=== PATIENT | female | born 1935 | race Caucasian/White ===

== ENCOUNTER 2017-01-07 10:02 | Emergency (ER) | payer MEDICARE, BC ==
[2017-01-07 10:55] LABS: BASOPHILS 0.2 % (0.0-2.0); EOSINOPHILS 1.5 % (0-7); HEMATOCRIT 45.9 % (36.0-48.0); HEMOGLOBIN 14.6 g/dL (12-16); IMMATURE GRANULOCYTES 0.2 % (0-5); LYMPHOCYTES 13.1 % (15-50); MCH 30.9 pg (26.0-34.0); MCHC 31.8 g/dL (31.0-37.0); MCV 97.2 fL (80.0-100.0); MEAN PLATELET VOLUME 9.9 fL (7.4-10.4); MONOCYTES 10.1 % (2-11); NEUTROPHILS 74.9 % (40-80); PLATELET COUNT 202 10x3/uL (130-400); RBC 4.72 10x6/uL (4.00-5.40); RDW 12.8 % (11.5-14.5); WBC 6.7 10x3/uL (4.8-10.8)
[2017-01-07 11:04] LABS: INR 1.38 (0.85-1.17); PROTIME 16.9 SECONDS (11.6-15.0)
[2017-01-07 11:12] LABS: ALBUMIN 3.5 g/dL (3.4-5.0); ANION GAP 7.2 mmol/L (8-16); BILIRUBIN - TOTAL 0.52 mg/dL (0.2-1.3); CALCIUM 9.8 mg/dL (8.5-10.1); CARBON DIOXIDE 36.6 mmol/L (21.0-32.0); CREATININE - SERUM 0.8 mg/dL (0.6-1.3); POTASSIUM - SERUM 4.8 mmol/L (3.5-5.1); PROTEIN - SERUM 6.8 g/dL (6.4-8.2)
== END 2017-01-07 11:37 | disposition home or self-care (01) ==
LOC: D.ER 10:02
PROVIDERS: Emergency Medicine; Nurse Practitioner Family
DX: S00.01XA Abrasion of scalp, initial encounter (principal); W01.0XXA Fall on same level from slipping, tripping and stumbling without subsequent striking against object, initial encounter; Y93.89 Activity, other specified; Y92.019 Unspecified place in single-family (private) house as the place of occurrence of the external cause; S09.90XA Unspecified injury of head, initial encounter; M54.16 Radiculopathy, lumbar region; Z95.0 Presence of cardiac pacemaker

== ENCOUNTER 2017-05-31 12:03 | Inpatient (IN) | payer MEDICARE, BC ==
[~2017-05-31] VITALS: Ht 160 cm; Wt 68.2 kg
[2017-05-31 13:01] LABS: APPEARANCE CLEAR (CLEAR); BILIRUBIN NEGATIVE (NEGATIVE); COLOR YELLOW (YELLOW); GLUCOSE NEGATIVE (NEGATIVE); KETONE NEGATIVE (NEGATIVE); LEUKOCYTE ESTERASE 1+ (NEGATIVE); NITRITE NEGATIVE (NEGATIVE); PROTEIN NEGATIVE (NEGATIVE); UROBILINOGEN NORMAL (NORMAL)
[2017-05-31 13:03] LABS: RED CELLS - URINE RARE /hpf (0-5); WHITE CELLS - URINE RARE /hpf (0-5)
[2017-05-31 13:04] LABS: BACTERIA FEW /hpf (NONE SEEN); EPITHELIAL CELLS 0-5 /hpf (0-5)
[2017-05-31 13:31] LABS: BASOPHILS 0.2 % (0-2); EOSINOPHILS 2.5 % (0-7); HEMATOCRIT 45.9 % (36.0-48.0); HEMOGLOBIN 13.8 g/dL (12-16); IMMATURE GRANULOCYTES 0.2 % (0-5); LYMPHOCYTES 19.3 % (15-50); MCH 29.4 pg (26.0-34.0); MCHC 30.1 g/dL (31.0-37.0); MCV 97.9 fL (80.0-100.0); MEAN PLATELET VOLUME 9.6 fL (7.4-10.4); MONOCYTES 11.5 % (2-11); NEUTROPHILS 66.3 % (40-80); PLATELET COUNT 186 10x3/uL (130-400); RBC 4.69 10x6/uL (4.00-5.40); RDW 13.9 % (11.5-14.5); WBC 5.7 10x3/uL (4.8-10.8)
[2017-05-31 14:00] LABS: INR 1.2 (0.85-1.17); PROTIME 15.1 SECONDS (11.6-15.0)
[2017-05-31 14:04] LABS: ALBUMIN 3.2 g/dL (3.4-5.0); ALKALINE PHOSPHATASE 95 U/L (46-116); ALT (SGPT) 17 U/L (10-68); BILIRUBIN - TOTAL 0.43 mg/dL (0.2-1.3); CALC OSMOLALITY 281 mosm/kg (275-300); CALCIUM 9.8 mg/dL (8.5-10.1); CHLORIDE - SERUM 100 mmol/L (98-107); CREATINE KINASE 51 UL (21-215); CREATININE - SERUM 0.7 mg/dL (0.6-1.3); GLUCOSE 117 mg/dL (74-106); MAGNESIUM - SERUM 2.1 mg/dL (1.8-2.4); POTASSIUM - SERUM 5.2 mmol/L (3.5-5.1); PRO BNP 364 pg/mL (0-450); PROTEIN - SERUM 6.5 g/dL (6.4-8.2); SODIUM 142 mmol/L (136-145); TROPONIN-I 0.018 ng/mL (0.000-0.060); UREA NITROGEN 8 mg/dL (7-18); eGFR NON AFRICAN AMERICAN 85 mL/min (90-120)
--- NOTE | 2017-05-31 19:45 | NUR ---
PT AWAKE AND ALERT WITH BIPAP IN PLACE, TRYING VERY HARD TO TALK THROUGH THE MASK. SAYING SHE IS VERY HUNGRY. PROVIDED PT WITH A MEAL AND PLACED HER ON O2 @ 2L/NC WHILE EATING. AFTER EATING, GOING TO BATHROOM WITH ASSISTANCE, PT SAT WAS 96%. DISCUSSED WITH Scotty AND HE WILL MONITOR AND RETURN HER TO BIPAP IF NEEDS INDICATED. SEE ASSESSMENT, MONITOR AND CPOC.
[2017-05-31 22:45] VITALS: BP 119/60; BMI 24.8
[2017-05-31 23:00] VITALS: BP 119/60
--- NOTE | 2017-05-31 23:00 | NUR ---
PT HAS REMAINED OFF OF BIPAP WITH O2 @ 2L/NC AND TOLERATING WELL. MONITOR AND CPOC.
[2017-05-31] MEDS ORDERED: CAPTOPRIL25 MG PO (23:21)
[2017-05-31] MEDS ORDERED: NORVASC10 MG PO (23:21)
[2017-05-31] MEDS ORDERED: MACRODANTIN50 MG PO (23:22)
[2017-05-31] MEDS ORDERED: LEVOTHYROXINE100 MCG PO (23:22)
[2017-05-31] MEDS ORDERED: PACERONE200 MG PO (23:24)
[2017-05-31] MEDS ORDERED: LIPITOR10 MG PO (23:26)
[2017-05-31] MEDS ORDERED: PRADAXA150 MG (23:27)
[2017-05-31] MEDS ORDERED: PAXIL30 MG PO (23:27)
[2017-06-01 04:58] LABS: BASOPHILS 0 % (0-2); EOSINOPHILS 0 % (0-7); HEMATOCRIT 45.5 % (36.0-48.0); HEMOGLOBIN 14.3 g/dL (12-16); LYMPHOCYTES 10.1 % (15-50); MCH 30.4 pg (26.0-34.0); MCHC 31.4 g/dL (31.0-37.0); MCV 96.8 fL (80.0-100.0); MEAN PLATELET VOLUME 9.8 fL (7.4-10.4); MONOCYTES 0.6 % (2-11); NEUTROPHILS 89.3 % (40-80); PLATELET COUNT 167 10x3/uL (130-400); RDW 13.3 % (11.5-14.5)
[2017-06-01 05:02] LABS: WBC 3.3 10x3/uL (4.8-10.8)
[2017-06-01 05:14] LABS: ANION GAP 7.7 mmol/L (8-16); CALCIUM 9.9 mg/dL (8.5-10.1); CARBON DIOXIDE 35.8 mmol/L (21.0-32.0); CREATININE - SERUM 0.8 mg/dL (0.6-1.3)
[2017-06-01 05:18] LABS: POTASSIUM - SERUM 3.5 mmol/L (3.5-5.1)
[2017-06-01 05:36] VITALS: BP 158/70
--- NOTE | 2017-06-01 06:33 | NUR ---
ROUNDS BY DR HEALY. PT BEING ASSESSED. CPOC.
[2017-06-01 07:20] VITALS: Ht 160 cm; Wt 68.2 kg
--- NOTE | 2017-06-01 08:11 | NUR ---
0715- AM ROUNDING- RECEIVED REPORT FROM ENGROSSER NURSE COLLINS. PT IS CURRENTLY LAYING IN BED ON BACK WITH EYES CLOSED RESTING. ON 02 AT 2L VIA NC. NO MONITOR. IV SEEN TO LEFT AC THAT IS CURRENTLY SALINE LOCKED. NO NEED AT CURRENT TIME. WILL CONTINUE TO MONITOR AND CONTINUE WITH PLAN OF CARE.
--- NOTE | 2017-06-01 08:12 | NUR ---
0801- ESTER WITH RESP CAME TO INFORM ME HE TOOK ABGS ORDERED BY DR. CHENEY. ESTER STATES CO2 IS 66.9. CALLED DR. PASCAL OFFICE TO INFORM HIM OF THIS. SPOKE WITH MIKAYLA DONOVAN. ZION STATES SHE WILL LET HIM KNOW. WILL AWAIT CALLBACK AND CONTINUE TO MONITOR.
[2017-06-01 08:34] VITALS: BP 124/52
[2017-06-01 12:24] VITALS: BP 111/58
[2017-06-01 16:33] VITALS: BP 122/62
--- NOTE | 2017-06-01 17:26 | NUR ---
PT IS CURRENTLY SITTING UP IN BED WITH EYES CLOSED RESTING. NO NEED AT CURRENT TIME. WILL CONTINUE TO MONITOR AND CONTINUE WITH PLAN OF CARE.
--- NOTE | 2017-06-01 17:30 | NUR ---
OT NOTE: PT COMPLETED BED MOB WITH CGA/MIN A. PT COMPLETED SITTING BALANCE WITH SBA. PT COMPLETED GROOMING TASK WITH SET UP. PT COMPLETED FM AXS FOR INCREASED I WITH ADLS. THANK YOU, LEATHA WILLINGHAM/Karen
[2017-06-01 19:00] VITALS: BP 131/59
--- NOTE | 2017-06-01 21:45 | NUR ---
PT LEFT AC SITE IS SWELLING, AND LEAK PINK FLUIDS, RESTART IV AT RT FOREARM, 22 GA, WITH 1 ATTEMPT, FLUSHED 10ML NORMAL SALINE, GOOD BLOOD RETURN,PT TOLERATE WELL.
--- NOTE | 2017-06-01 21:54 | NUR ---
GAVE DIAMOX, SUPPERVISED BY JAMEL Haider RN
[2017-06-02] VITALS: BP 115/57
--- NOTE | 2017-06-02 01:49 | NUR ---
REST QUIETLY IN BED, EYE CLOSE, BED LOW, CALL LIGHT WITHIN REACH.
[2017-06-02 04:00] VITALS: BP 143/63
[2017-06-02 04:35] LABS: BASOPHILS 0 % (0-2); EOSINOPHILS 0 % (0-7); HEMOGLOBIN 12.8 g/dL (12-16); IMMATURE GRANULOCYTES 0.2 % (0-5); MCH 29.4 pg (26.0-34.0); MCHC 31.2 g/dL (31.0-37.0); MEAN PLATELET VOLUME 9.3 fL (7.4-10.4); MONOCYTES 3.2 % (2-11); NEUTROPHILS 91.6 % (40-80); PLATELET COUNT 185 10x3/uL (130-400); RBC 4.35 10x6/uL (4.00-5.40); RDW 13.5 % (11.5-14.5)
[2017-06-02 04:40] LABS: MCV 94.3 fL (80.0-100.0); WBC 8.6 10x3/uL (4.8-10.8)
[2017-06-02 05:04] LABS: ALBUMIN 2.8 g/dL (3.4-5.0); ANION GAP 5.3 mmol/L (8-16); BILIRUBIN - TOTAL 0.29 mg/dL (0.2-1.3); CALCIUM 10.1 mg/dL (8.5-10.1); CARBON DIOXIDE 32.9 mmol/L (21.0-32.0); CREATININE - SERUM 0.9 mg/dL (0.6-1.3); MAGNESIUM - SERUM 2.2 mg/dL (1.8-2.4); PHOSPHOROUS 2.9 mg/dL (2.5-4.9); POTASSIUM - SERUM 3.2 mmol/L (3.5-5.1); PROTEIN - SERUM 6.3 g/dL (6.4-8.2); THYROID STIMULATING HORMONE 0.49 uIU/mL (0.36-3.74)
--- NOTE | 2017-06-02 07:59 | NUR ---
AM ROUNDING- RECEIVED REPORT FROM STRATEGIC SOURCING MANAGER NURSE SANTI. PT IS CURRENTLY SITTING UP IN BED WITH EYES OPEN RESTING REQUESTING A NEWS PAPER. ON 02 AT 2L VIA NC. NO MONITOR. IV SEEN TO RIGHT FOREARM THAT IS CURRENTLY SALINE LOCKED. NO NEED AT CURRENT TIME. WILL CONTINUE TO MONITOR AND CONTINUE WITH PLAN OF CARE.
[2017-06-02 08:00] VITALS: BP 116/42
[2017-06-02 12:00] VITALS: BP 105/48
[2017-06-02 16:00] VITALS: BP 111/44
--- NOTE | 2017-06-02 16:14 | NUR ---
OT NOTE: PT COMPLETED BUE STRENGTHENING EXS FOR INCREASED I WITH ADLS. PT COMPLETED GROOMING AND HYGIENE TASKS WITH CGA. PT COMPLETED BED MOB WITH CGA. THANK YOU, LEATHA WILLINGHAM/Karen
--- NOTE | 2017-06-02 16:19 | NUR ---
OT NOTE: PERFORMED ADLS INCLUDING AMB TO BATHROOM AND PERFORMED TOILEITNG AND CLOTHING MGMT WITH SBA. SLIGHTLY OFF BALANCE WHILE TURNING TO AMB BACK TO BED; BED MOB AND TRANSFERS WERE INDEP; PT HAD TO STOP AND HOLD ON TO THERAPIST WHEN TURNING FROM TOILET TO WALK WITH INTERVENTIONAL CARDIOLOGIST BACK TO BED
--- NOTE | 2017-06-02 16:35 | NUR ---
PT IS CURRENTLY SITTING UP IN BED WITH EYES OPEN RESTING. GUEST IS AT BEDSIDE. PT DENIES ANY NEED AT CURRENT TIME. CALL LIGHT IS IN REACH. WILL CONTINUE TO MONITOR.
--- NOTE | 2017-06-02 17:08 | NUR ---
Patient Name: DALTON SOARES Admission Status: ER Accout number: [id number] Admission Date: 05-31-2017 : 1935 Admission Diagnosis:SHORTNESS OF BREATH Attending: KACIE Current LOS: 2 Anticipated DC Date: Planned Disposition: Home Primary Insurance: MEDICARE A & B Discharge Planning Comments: * Is the patient Alert and Oriented? Yes 0 * How many steps to enter\exit or inside your home? NONE 0 * PCP DR. HEALY 0 * Pharmacy [facility] 0 * Preadmission Environment Home with Family 0 * ADLs Independent 0 * Equipment Cane Nebulizer Oxygen Walker 0 * Other Equipment HOME OXYGEN AT NIGHT ONLY [employer] 0 * List name and contact numbers for known caregivers / representatives who currently or will assist patient after discharge: [place] SOARES, SON, 0 * Community resources currently utilized None 0 * Please name any agencies selected above. NONE 0 * Additional services required to return to the preadmission environment? No 0 * Can the patient safely return to the preadmission environment? Yes 0 * Has this patient been hospitalized within the prior 30 days at any hospital? No 0 CM MET WITH PT IN ROOM TO DISCUSS DISCHARGE PLANNING AND NEEDS. PT REPORTS LIVING AT HOME INDEPENDENTLY, PT REPORTS HER SON AND DAUGHTER IN LAW ARE LIVING WITH HER UNTIL SHE IS ABLE TO SELL THE HOUSE; PT REPORTS BEING ON WAITING LIST FOR INDEPENDENT LIVING APARTMENT AT [facility]. PT HAS CANE, WALKER, NEBULIZER AND NIGHT TIME OXYGEN AT HOME, PROVIDER UNKNOWN. PT HAS NO OUTSIDE SERVICES ASSISTING IN THE HOME. CM DISCUSSED AVAILABILITY OF HOME HEALTH, REHAB SERVICES AND MEDICAL EQUIPMENT. PT REPORTS UNKNOWN DISCHARGE NEEDS, REPORTS HER SON WILL PICK HER UP FOR DISCHARGE HOME. PT PLANS TO DISCHARGE HOME, PT'S SON AND DAUGHTER IN LAW LIVE WITH PT. PT REPORTS [employer] DISCHARGE NEEDS AT TIME OF ASSESSEMENT. CM TO FOLLOW AND ASSIST IF NEEDED. Farmworker Livestock: Salvador Rodriguez
[2017-06-02 21:05] VITALS: BP 105/47
--- NOTE | 2017-06-02 23:00 | NUR ---
ASSISTED PT TO BATHROOM. SMALL BM AND CLEAR YELLOW URINE NOTED. PARTIAL ASSIST WHEN TRYING TO GET OOB. PT USES WALKER WITH NO ISSUES NOTED. SHIFT ASSESSMENT COMPLETE EARILER. PT ALERT AND ORIENTED TO PERSON, PLACE, TIME AND SITUATION. NC @ 2 L/MIN. EXPIRATORY WHEEZES AND CRACKLES HEARD BILAT THROUGH ALL LOBES. S1S2 AUDIBLE. PACEMAKER NOTED. BOWEL SOUNDS ACTIVE IN ALL QUADS. R FOREARM IV WITH NS @ KVO. SLIPPER SOCKS IN PLACE. DURING REPORT IT WAS NOTED THAT HER POTASSIUM IS LOW. FOLLOWED ELECTROLYTE PROTOCOL AT 2100. CALL LIGHT IN REACH. PT SLEEPS WITH BLACK SLEEP MASK OVER HER EYES. LIGHTS OUT. BATHROOM DOOR IS OPEN, WALKER BY BEDSIDE. INSTRUCTED PT TO PUSH CALL LIGHT WHEN SHE NEEDS TO USE THE RESTROOM. PT VEBALIZED UNDERSTANDING. DOOR CRACKED. WILL CONTINUE TO MONITOR.
[2017-06-03 01:19] VITALS: BP 125/65
--- NOTE | 2017-06-03 02:35 | NUR ---
PT RESTING AT THIS TIME ON HER BACK, NC @ 2L/MIN, MOUTH OPEN. NO S/S OF DISTRESS AT THIS TIME. BATHROOM DOOR REMAINS OPEN, WALKER BESIDE THE BED ON THE RIGHT SIDE. IV MAINTENCE FLUID NS @ KVO. ROOM FREE OF CLUTTER. CALL LIGHT AND BEDSIDE TABLE WITHIN REACH. WILL CONTINUE TO MONITOR.
[2017-06-03 05:00] LABS: BASOPHILS 0 % (0-2); EOSINOPHILS 0 % (0-7); HEMATOCRIT 41.5 % (36.0-48.0); HEMOGLOBIN 13.1 g/dL (12-16); IMMATURE GRANULOCYTES 0.4 % (0-5); LYMPHOCYTES 3.2 % (15-50); MCH 29.7 pg (26.0-34.0); MCHC 31.6 g/dL (31.0-37.0); MCV 94.1 fL (80.0-100.0); MEAN PLATELET VOLUME 9.7 fL (7.4-10.4); MONOCYTES 2.5 % (2-11); NEUTROPHILS 93.9 % (40-80); PLATELET COUNT 206 10x3/uL (130-400); RBC 4.41 10x6/uL (4.00-5.40); RDW 13.9 % (11.5-14.5)
[2017-06-03 05:07] LABS: WBC 10.8 10x3/uL (4.8-10.8)
[2017-06-03 05:23] LABS: ALBUMIN 2.8 g/dL (3.4-5.0); ANION GAP 8.8 mmol/L (8-16); BILIRUBIN - TOTAL 0.2 mg/dL (0.2-1.3); CALCIUM 9.8 mg/dL (8.5-10.1); CARBON DIOXIDE 31.8 mmol/L (21.0-32.0); MAGNESIUM - SERUM 2.2 mg/dL (1.8-2.4); POTASSIUM - SERUM 3.6 mmol/L (3.5-5.1); PROTEIN - SERUM 6.2 g/dL (6.4-8.2)
[2017-06-03 06:18] VITALS: BP 144/53
--- NOTE | 2017-06-03 06:30 | NUR ---
COMPLETE BED BATH AND LINEN CHANGE PROVIDED BY INVESTIGATION OFFICER AND RN. PT RESTING COMFORTABLY WITH NO REQUESTS AT THIS TIME. RESPIRATORY AT BEDSIDE ADMIN TX. CALL LIGHT IN REACH. BED IN LOWEST POSITON. WALKER NEAR BEDSIDE. PT WEARING NON-SKID SOCKS. WILL CONTINUE WITH PLAN OF CARE.
--- NOTE | 2017-06-03 07:14 | NUR ---
PT SITTING UP IN BED SLEEPING RR EVEN AND UNLABORED NO S/S DISTRESS NOTED. WILL CONT TO MONITOR
[2017-06-03 08:09] VITALS: BP 130/54
[2017-06-03 12:52] VITALS: BP 101/46
--- NOTE | 2017-06-03 13:39 | NUR ---
Nutrition Follow Up: Pt was on the phone at the time of RD visit. Interview deferred at this time. Pt is eating 63% meal avg on an AHA 2g Na diet. Wt gain since admit noted. +BM 06/03/17. Labs reviewed - glucose elevated. Meds noted including Prednisone. Rec continue current diet. If glucose continues elevated rec changing diet to AHA NCS. RD following.
--- NOTE | 2017-06-03 14:41 | NUR ---
OT NOTE: PERFORMED IN ROOM AMBULATION WITH SENIOR SYSTEM OPERATOR; TOILETING WITH HAND HELD ASSIST AND CGA FOR BALANCE WHILE PULLING UP PANTS; BED MOB WITH SPV; UE AROM EXS TO IMPROVE STRENGTH AND ENDURANCE
--- NOTE | 2017-06-03 14:45 | NUR ---
OT NOTE: PT COMPLETED ORAL HYGIENE AND GROOMING TASKS WITH SET UP. PT COMPLETED ADL MOB WITH CGA. PT COMPLETED BED MOB WITH SUPV. PT COMPLETED BUE AROM EXS FOR INCREASED AX TOLERANCE. THANK YOU, TENISHA WILLINGHAM
[2017-06-03 16:19] VITALS: BP 118/49
--- NOTE | 2017-06-03 18:39 | NUR ---
PT SITTING UP IN BED EATING DINNER DENIES NEEDS
[2017-06-03 19:00] VITALS: BP 120/52
--- NOTE | 2017-06-03 19:30 | NUR ---
RECEIVED REPORT, WILL ASSUME CARE OF PT, BED IS LOW, SRX2, CALL LIGHT IN REACH, PT DENIES ANY NEEDS, WILL CONTINUE PLAN OF CARE
[2017-06-04] VITALS: BP 117/59
--- NOTE | 2017-06-04 01:37 | NUR ---
ASSISTED PT TO RESTROOM
[2017-06-04 04:00] VITALS: BP 119/52
[2017-06-04 05:24] LABS: BASOPHILS 0 % (0-2); EOSINOPHILS 0 % (0-7); HEMATOCRIT 41.2 % (36.0-48.0); HEMOGLOBIN 12.9 g/dL (12-16); IMMATURE GRANULOCYTES 0.3 % (0-5); MCH 29.1 pg (26.0-34.0); MCHC 31.3 g/dL (31.0-37.0); MCV 92.8 fL (80.0-100.0); MEAN PLATELET VOLUME 9.6 fL (7.4-10.4); MONOCYTES 4.6 % (2-11); NEUTROPHILS 90.1 % (40-80); PLATELET COUNT 207 10x3/uL (130-400); RBC 4.44 10x6/uL (4.00-5.40); RDW 14.2 % (11.5-14.5); WBC 9.5 10x3/uL (4.8-10.8)
[2017-06-04 05:46] LABS: CALC OSMOLALITY 282 mosm/kg (275-300); CALCIUM 9.4 mg/dL (8.5-10.1); CARBON DIOXIDE 31.3 mmol/L (21.0-32.0); CHLORIDE - SERUM 104 mmol/L (98-107); GLUCOSE 153 mg/dL (74-106); MAGNESIUM - SERUM 2.3 mg/dL (1.8-2.4); PHOSPHOROUS 2.9 mg/dL (2.5-4.9); POTASSIUM - SERUM 3.4 mmol/L (3.5-5.1); SODIUM 139 mmol/L (136-145); UREA NITROGEN 19 mg/dL (7-18); eGFR NON AFRICAN AMERICAN 85 mL/min (90-120)
[2017-06-04 05:47] LABS: CREATININE - SERUM 0.7 mg/dL (0.6-1.3)
--- NOTE | 2017-06-04 07:16 | NUR ---
PT SITTING UP TO CHAIR DENIES NEEDS WILL CONT TO MONITOR
[2017-06-04 08:12] VITALS: BP 102/39
--- NOTE | 2017-06-04 11:46 | NUR ---
Rehab Note- Acute Rehab Prescreen order received. Visited with the patient, she is very interested in coming to [facility] when ready for discharge from the acute hospital. Spoke with DEVYN Nina. Will follow at this time. Thank you for this referral! Haja Mcmanus RN Clinical Liaison, [facility]
[2017-06-04 12:13] VITALS: BP 123/44
--- NOTE | 2017-06-04 14:37 | NUR ---
Patient Name: DALTON SOARES Encounter No: [id number] : 1935 Primary Insurance: MEDICARE A & B Anticipated DC Date: 06-04-2017 Planned Disposition: Inpatient Rehab External Planned Provider: [facility] DCP follow-up note: CM SPOKE TO MARIA G OF INPATIENT REHAB, THEY PLAN TO ACCEPT PT TODAY FOR REHAB IF STABLE FOR DISCHARGE. CM SPOKE TO DR. GUERIN WHO INFORMED CM THAT PT WILL DISCHARGE TO REHAB TODAY. PT NOTIFIED, IN AGREEMENT WITH DISCHARGE TO INPATIENT REHAB. IMPORTANT MESSAGE FROM MEDICARE PROVIDED AND EXPLAINED. [facility] TO CONTACT MED 2 NURSE WITH ROOM NUMBER WHEN READY TO ACCEPT PT AND NURSE REPORT. Salvador Rodriguez, CASE MANAGEMENT
[2017-06-04 16:07] VITALS: BP 130/47
--- NOTE | 2017-06-04 16:14 | NUR ---
OT NOTE: PT COMPLETED BED MOB WITH SBA. PT COMPLETED DYNAMIC SITTING BALANCE WITH SBA. PT COMPLETED BUE AROM EXS IN ALL PLANES FOR INCREASED AX KAVON. PT COMPLETED GROOMING TASK AT EOB WITH SBA. THANK YOU, LEATHA WILLINGHAM/Karen
[2017-06-04] MEDS ORDERED: ROCEPHIN 1 GM/D51 G1 IV (16:55)
[2017-06-04] MEDS ORDERED: STERAPRED DS 1010 MG PO (16:56)
--- NOTE | 2017-06-04 17:30 | NUR ---
WENT OVER DC INSTRUCTIONS WITH PT PT VERBALIZES UNDERSTANDING. PT TO GO TO REHAB WITH PIV. FINISHING IV ABX AND PT FINISHING DINNER AND WILL TAKE PT TO REHAB. TRIED TO CALL REPORT TO SHADI IN REHAB- SHE SAID THAT THE SCREENING IS NOT COMPLETE AND THEY DONT HAVE BED READY YET. THEY WILL CALL WHEN THEY ARE READY FOR HER
--- NOTE | 2017-06-04 18:03 | NUR ---
PT SITTING UP TO CHAIR. DENIES NEEDS. STILL WAITING ON REHAB BED
--- NOTE | 2017-06-04 18:51 | NUR ---
PT PULLED PIV OUT. CATH TIP INTACT. TRIED TO RESITE PT X2 STICKS. NO SUCCESS.
--- NOTE | 2017-06-04 18:55 | NUR ---
CALLED REHAB AND LET THEM KNOW THAT PT DOES NOT HAVE IV ACCESS ANYMORE. SPOKE WITH VIDHI
--- NOTE | 2017-06-04 19:11 | NUR ---
PT WAS WHEELED DOWN TO REHAB VIA WHEELCHAIR
== END 2017-06-04 19:11 | DRG 189 ==
LOC: D.ER 12:03 → D.M2 16:40
PROVIDERS: Internal Medicine Pulmonary Disease; Nurse Practitioner Family; ADMIT Family Medicine
PROC: 5A09357 Assistance with Respiratory Ventilation, Less than 24 Consecutive Hours, Continuous Positive Airway Pressure (ICD-10-PCS; principal; 2017-05-31)
DX: J96.02 Acute respiratory failure with hypercapnia (principal); J18.9 Pneumonia, unspecified organism; J44.1 Chronic obstructive pulmonary disease with (acute) exacerbation; J44.0 Chronic obstructive pulmonary disease with (acute) lower respiratory infection; E87.2 Acidosis; J96.01 Acute respiratory failure with hypoxia; I48.91 Unspecified atrial fibrillation; R53.1 Weakness; Z91.81 History of falling

== ENCOUNTER 2017-06-04 19:20 | Inpatient (IN) | payer MEDICARE, BC ==
[~2017-06-04] VITALS: Ht 160 cm; Wt 64.4 kg
[~2017-06-04 19:20] MED LIST: CAPTOPRIL25 MG PO; LEVOTHYROXINE100 MCG PO; LIPITOR10 MG PO; MACRODANTIN50 MG PO; NORVASC10 MG PO; PACERONE200 MG PO; PAXIL30 MG PO; PRADAXA150 MG; ROCEPHIN 1 GM/D51 G1 IV; STERAPRED DS 1010 MG PO
--- NOTE | 2017-06-04 19:20 | NUR ---
PT ARRIVED ON UNIT JOSE W/C ACCOMPANIED BY HOSPITAL STAFF.
[2017-06-04 19:30] VITALS: BP 126/54
--- NOTE | 2017-06-04 19:30 | NUR ---
PT IN BED WITH HOB UP FOR COMFORT. ALERT & ORIENTED. RT FA IV. O2 @ 2L VIA N/C. HEARING AIDS. ELECTROLYTE PROTOCOL. BED IN LOWEST POSTION AND CALL LIGHT WITHIN REACH.
--- NOTE | 2017-06-04 20:00 | NUR ---
RN TO DO ADMISSION ASSESSMENT.
[2017-06-04 23:27] VITALS: BMI 24.8
--- NOTE | 2017-06-04 23:45 | NUR ---
ADMISSION ASSESSMENT COMPLETE. PATIENT DENIES CURRENT NEEDS.
--- NOTE | 2017-06-05 03:45 | NUR ---
PT IN BED WITH HOB UP FOR COMFORT. EYES CLOSED. CHEST RISING AND FALLING. BED IN LOWEST POSITION AND CALL LIGHT WITHIN REACH.
--- NOTE | 2017-06-05 04:27 | NUR ---
PT IN BED WITH HOB UP FOR COMFORT. EYES CLOSED. RESPIRATIONS EVEN. BED IN LOWEST POSITION AND CALL LIGHT WITHIN REACH.
[2017-06-05 06:06] LABS: ANION GAP 9.3 mmol/L (8-16); CALCIUM 9.6 mg/dL (8.5-10.1); CARBON DIOXIDE 30.6 mmol/L (21.0-32.0); CREATININE - SERUM 0.8 mg/dL (0.6-1.3); POTASSIUM - SERUM 3.9 mmol/L (3.5-5.1)
[2017-06-05 07:30] LABS: BASOPHILS 0 % (0-2); EOSINOPHILS 0 % (0-7); HEMATOCRIT 44.6 % (36.0-48.0); HEMOGLOBIN 14.2 g/dL (12-16); IMMATURE GRANULOCYTES 0.4 % (0-5); LYMPHOCYTES 8.9 % (15-50); MCH 29.6 pg (26.0-34.0); MCHC 31.8 g/dL (31.0-37.0); MCV 92.9 fL (80.0-100.0); MEAN PLATELET VOLUME 9.8 fL (7.4-10.4); MONOCYTES 9.6 % (2-11); NEUTROPHILS 81.1 % (40-80); PLATELET COUNT 235 10x3/uL (130-400); RDW 14.2 % (11.5-14.5); WBC 11.2 10x3/uL (4.8-10.8)
[2017-06-05 08:00] VITALS: BP 149/61
--- NOTE | 2017-06-05 08:00 | NUR ---
SHIFT ASSMT COMPLETED.O2 PATENT.MEAL SET-UP PROVIDED.CL IN REACH.
--- NOTE | 2017-06-05 08:00 | NUR ---
SHIFT ASSMT COMPLETED.DENIES NEEDS.BLACK EYECOVER REMOVED.SITTING UP IN BED FOR BREAKFAST.MEAL SET-UP PROVIDED.CL IN REACH.
[2017-06-05 10:09] VITALS: BMI 24.8
--- NOTE | 2017-06-05 12:00 | NUR ---
REQUEST TO SLEEP;WILL EAT LATER.CL IN REACH.
--- NOTE | 2017-06-05 13:00 | NUR ---
AWAKENED FOR LUNCH.DENIES NEEDS.
--- NOTE | 2017-06-05 16:00 | NUR ---
RESTING QUIETLY.CL IN REACH.
--- NOTE | 2017-06-05 20:15 | NUR ---
PT. IN BED WITH HOB UP FOR COMFORT WITH O2 ON VIA N/C AT 2L/MIN WITHOUT ANY S/S DISTRESS. EYES CLOSED, RESP. EVEN, AND PT'S MOUTH IS WIDE OPEN. PT. ALSO IS WEARING HER BLACK EYE MASK OVER HER GLASSES SHE IS RESTING. PT. AWAKENS EASILY FOR ASSESSMENT. NO VOICED NEEDS AT THIS TIME AND HER CALL LIGHT IS WITHIN REACH.
[2017-06-05 20:30] VITALS: BP 134/55
--- NOTE | 2017-06-05 23:12 | NUR ---
PT. IN BED WITH HOB UP FOR COMFORT. BLACK EYE MASK IN PLACE. RESP. DEEP AND EVEN. O2 ON VIA N/C @ 2L/MIN WITHOUT ANY S/S DISTRESS. CALL LIGHT IS WITHIN REACH.
--- NOTE | 2017-06-06 03:13 | NUR ---
PT. IN BED WITH HOB UP FOR COMFORT WITH BLACK EYE MASK ON AND HER MOUTH WIDE OPEN BREATHING DEEP AND EVEN. O2 ON VIA N/C @ 2L/MIN WITHOUT ANY S/S DISTRESS. CALL LIGHT WITHIN REACH.
[2017-06-06 08:00] VITALS: BP 126/72
--- NOTE | 2017-06-06 08:00 | NUR ---
SHIFT ASSMT COMPLETED.REMAINS ON O2@2L/NC.UP OOB TO BATHROOM WITH WALKER.RETURNED TO AT BEDSIDE.BREAKFAST TRAY GIVEN.CL IN REACH.
--- NOTE | 2017-06-06 12:00 | NUR ---
UP OOB TO BATHRM AND BACK TO WC.UP OOB FOR LUNCH.CL IN REACH.
--- NOTE | 2017-06-06 16:00 | NUR ---
RESTING QUIETLY.CL IN REACH.
[2017-06-06 19:20] VITALS: BP 139/57
--- NOTE | 2017-06-06 19:45 | NUR ---
PT IN BED WITH HOB UP FOR COMOFRT. RESTING QUIETLY. ALERT & ORIENTED. 02 @ 2L VIA N/C. LT HAND SALINE LOC. PACEMKAER. ELECTROLYTE PROTOCOL. BED IN LOWEST POSITION AND CALL LIGHT WITHIN REACH.
--- NOTE | 2017-06-06 21:30 | NUR ---
SON PRESENT INQUIRING OF MOTHER'S MEDICATION AND CONCERN THAT SHE HAD REFUSED HER AMIODORONE THIS AM. SON WANTED TO CONSULT WITH PT'S BUYER BROKER. MOTHER VERBALIZED CONSENT TO DISCUSS WITH SON AND TO GIVE HIM A LIST OF HER MEDICATIONS. WITNESSED BY JUNIOR LARSON LPN. PROVIDED SON WITH LIST OF MEDICATION. SON STATED THAT HE WAS THE POA AND HIS MOTHER HAS A LIVING WILL AND WANTS TO BE A DNR. CHECKED CHART AND FOUND NO DOCUMENTS, REQUESTED SON BRING IN THE DOCUMENTS. LEFT MESSAGE FOR DR. MARTINEZ TO DISCUSS WITH PATIENT HER WISHES. PT AWOKEN EASILY, DENIES ANY NEEDS.
--- NOTE | 2017-06-07 01:30 | NUR ---
PT IN BED WITH HOB UP FOR COMFORT. EYES CLOSED. RESP. EVEN. BED IN LOWEST POSITION AND CALL LIGHT WITHIN REACH.
--- NOTE | 2017-06-07 04:35 | NUR ---
PT IN BED WITH HOB UP FOR COMFORT. EYES CLOSED. CHEST RISING AND FALLING. BED IN LOWEST POSITION AND CALL LIGHT WITHIN REACH.
[2017-06-07 07:00] LABS: CALC OSMOLALITY 289 mosm/kg (275-300); CALCIUM 9.3 mg/dL (8.5-10.1); CARBON DIOXIDE 32.4 mmol/L (21.0-32.0); CHLORIDE - SERUM 105 mmol/L (98-107); CREATININE - SERUM 0.5 mg/dL (0.6-1.3); POTASSIUM - SERUM 4.7 mmol/L (3.5-5.1); SODIUM 144 mmol/L (136-145); UREA NITROGEN 12 mg/dL (7-18); eGFR NON AFRICAN AMERICAN > 90 mL/min (90-120)
[2017-06-07 07:02] LABS: GLUCOSE 152 mg/dL (74-106)
[2017-06-07 07:03] LABS: BASOPHILS 0.1 % (0-2); EOSINOPHILS 0 % (0-7); HEMATOCRIT 46.7 % (36.0-48.0); HEMOGLOBIN 14.6 g/dL (12-16); IMMATURE GRANULOCYTES 0.4 % (0-5); LYMPHOCYTES 6.5 % (15-50); MCH 29.2 pg (26.0-34.0); MCHC 31.3 g/dL (31.0-37.0); MCV 93.4 fL (80.0-100.0); MONOCYTES 5.4 % (2-11); NEUTROPHILS 87.6 % (40-80); PLATELET COUNT 239 10x3/uL (130-400); RDW 14.3 % (11.5-14.5); WBC 13.4 10x3/uL (4.8-10.8)
[2017-06-07 11:53] VITALS: BP 132/62
--- NOTE | 2017-06-07 12:43 | NUR ---
PATIENT ADMITTED TO REHAB FROM ACUTE FLOOR. DR. HEALY IS PCP, [facility] AT [facility] IS PHARMACY OF CHOICE. DME AT HOME CANE, NEBULIZER, O2 AND WALKER. PLANS ARE FOR PATIENT TO RETURN HOME WITH HER FAMILY. WILL CONTINUE TO FOLLOW WITH PATIENT.
--- NOTE | 2017-06-07 19:45 | NUR ---
PT RESTING QUIETLY LYING IN BED RESPIRATIONS REGULAR AND UNLABORED, OXYGEN PER NASAL CANULA.
[2017-06-07 21:20] VITALS: BP 136/65
--- NOTE | 2017-06-08 01:11 | NUR ---
ASSISTED PT TO BATHROOM, PT USES CALL LIGHT, STATES SHE IS DOING FINE AND DENIES ANY OTHER NEEDS.
--- NOTE | 2017-06-08 05:04 | NUR ---
PT RESTING QUIETLY, NO S/S OF ACUTE DISTRESS.
--- NOTE | 2017-06-08 06:34 | NUR ---
MIN ASSIST WITH AM SHOWERS, LINEN CHANGE
--- NOTE | 2017-06-08 10:17 | NUR ---
RESTING QUIETLY IN BED. OXYGEN IN PLACE. NO S/S DISTRESS. CALL LIGHT IN REACH
--- NOTE | 2017-06-08 11:51 | NUR ---
SITTING UP IN W/C IN ROOM WATCHING TV. CALL LIGHT IN REACH
[2017-06-08 12:39] VITALS: BP 123/53
--- NOTE | 2017-06-08 12:39 | NUR ---
SITTING IN W/C IN ROOM EATING LUNCH. CALL LIGHT IN REACH
--- NOTE | 2017-06-08 18:32 | NUR ---
RESTING QUIETLY IN BED. NO S/S DISTRESS.
--- NOTE | 2017-06-08 21:16 | NUR ---
PT SPOUSE CONTACTED NURSING STATION AND DEMANDS THAT PT RECEIVES REGULAR WATER ABOUT 2 SMALL BOTTLEES TO THAT PATIENT WILL SHUT UP AND GO TO SLEEP. SHE STATES HE KEEPS CALLING HER. I EXPLAINED THE RISKS, SHE STATES PATIENT HAS DEMENTIA AND IS 89 AND SHE WANTS HIM TO HAVE WATER.
[2017-06-08 21:44] VITALS: BP 128/68
--- NOTE | 2017-06-09 00:15 | NUR ---
PT AWAKE, DISCUSSED PLAN FOR MORNING WHICH INCLUDES A SHOWER.
--- NOTE | 2017-06-09 04:19 | NUR ---
PT RESTING QUIELTY, NO S/S OF ACUTE DISTRESS.
[2017-06-09 07:38] LABS: BASOPHILS 0 % (0-2); EOSINOPHILS 0.1 % (0-7); HEMATOCRIT 47.7 % (36.0-48.0); HEMOGLOBIN 14.6 g/dL (12-16); IMMATURE GRANULOCYTES 0.9 % (0-5); LYMPHOCYTES 8.7 % (15-50); MCH 29.1 pg (26.0-34.0); MCHC 30.6 g/dL (31.0-37.0); MCV 95.2 fL (80.0-100.0); MEAN PLATELET VOLUME 9.2 fL (7.4-10.4); MONOCYTES 7.3 % (2-11); PLATELET COUNT 264 10x3/uL (130-400); RBC 5.01 10x6/uL (4.00-5.40); RDW 14.3 % (11.5-14.5); WBC 11.9 10x3/uL (4.8-10.8)
--- NOTE | 2017-06-09 08:00 | NUR ---
SHIFT ASSMT COMPLETED.DENIES NEEDS.CL IN REACH.
[2017-06-09 08:04] LABS: CALCIUM 9.3 mg/dL (8.5-10.1); CHLORIDE - SERUM 103 mmol/L (98-107); CREATININE - SERUM 0.6 mg/dL (0.6-1.3); POTASSIUM - SERUM 4.7 mmol/L (3.5-5.1); SODIUM 143 mmol/L (136-145); UREA NITROGEN 11 mg/dL (7-18); eGFR NON AFRICAN AMERICAN > 90 mL/min (90-120)
[2017-06-09 08:26] LABS: CALC OSMOLALITY 283 mosm/kg (275-300); CARBON DIOXIDE 40.6 mmol/L (21.0-32.0); GLUCOSE 104 mg/dL (74-106)
--- NOTE | 2017-06-09 08:31 | NUR ---
Critical Result Type: co2 Critical Result Value: 40.6 Time Nurse Notified: 0830 Name of Physician and Time Called: 0831 Physician Notified at: 0831 Physician NOT Notified with Reason: NA Comments: ON UNIT AT PRESENT Read Back and Verified By: GABRIEL
[2017-06-09 08:56] VITALS: BP 123/65
--- NOTE | 2017-06-09 12:00 | NUR ---
EATING LUNCH.DENIES NEEDS.
--- NOTE | 2017-06-09 15:26 | NUR ---
CARE TEAM MEETING: SON ATTENDED MEETING AND PLANS ARE FOR PATIENT TO RETURN HOME. TENATIVE DISCHARGE DATE IS 06/15/17. WILL CONTINUE TO FOLLOW WITH SON AND ASSIT WITH DISCHARGE NEEDS.
--- NOTE | 2017-06-09 16:00 | NUR ---
RESTING QUIETLY.DENIES NEEDS.
--- NOTE | 2017-06-09 19:30 | NUR ---
PT. IN BED WITH HOB UP FOR COMFORT AND IS WATCHING TV. ASSESSMENT COMPLETED. ASSISTED PT. TO/FROM BR TO URINATE. PT. ALSO DID HER ORAL CARE BEFORE RETURNING TO BED. NO VOICED NEEDS AT THIS TIME AND HER CALL LIGHT IS WITHIN REACH.
[2017-06-09 20:11] VITALS: BP 132/50
--- NOTE | 2017-06-09 21:50 | NUR ---
LEFT HAND PERIPHERAL IV D/C'D WITH ANGIOCATH TIP INTACT. PRESSURE HELD FOR 5 MIN. PT. IS ON PRADAXA. NO BLEEDING SEEN AND BANDAID APPLIED. PT. TOLERATED PROCEDURE WITHOUT ANY C/O.
--- NOTE | 2017-06-09 23:18 | NUR ---
PT. IN BED WITH HOB UP FOR COMFORT WITH EYES CLOSED AND RESP. DEEP AND EVEN. O2 AT 2L/MIN VIA N/C WITHOUT ANY S/S DISTRESS. CALL LIGHT WITHIN REACH.
--- NOTE | 2017-06-10 08:00 | NUR ---
SHIFT ASSMT COMPLETED.
[2017-06-10 08:47] VITALS: BP 121/49
--- NOTE | 2017-06-10 09:05 | NUR ---
HAD ANOTHER EPISODE OF FEELING BAD AGAIN;COLOR PALE AND CLAMMY;ASSISTED TO MAT IN A SUPINE POS HEAD AND FEET SLIGHTLY ELAVATED.STATED FEELINGS WAS GOING AWAY.BP HAD DROPPED VERY LOW SEE VITAL SIGNS. VISITING AND REPORTED.
--- NOTE | 2017-06-10 10:50 | NUR ---
REPORTED BY OT ATTEMTED TO GET OOB BUT DURING SITTING ON SIDE OF BED REPORTED SHE WAS HAVING THAT FEELING AGAIN.BP WAS CHECKED AND FOUND TO BE LOW.PLACED BACK IN BED AND RECHECKED BP AND FOUND TO BE WNL AND SYMPTOMS WENT AWAY. CONSULTED TO SEE.
--- NOTE | 2017-06-10 12:00 | NUR ---
EATING LUNCH.DENIES NEEDS.
[2017-06-10 15:41] VITALS: Ht 160 cm; Wt 64.4 kg
--- NOTE | 2017-06-10 16:00 | NUR ---
RESTING QUIETLY.DENIES NEEDS.HELD CARDIAC AND BP AND DIURETICS TODAY UNTIL DR.BOWEN REECE'S PT.
[2017-06-10 19:00] VITALS: BP 122/55
--- NOTE | 2017-06-10 19:25 | NUR ---
PT IN BED WITH HOB UP FOR COMFORT. RESTING QUIETLY. ALERT & ORIENTED. 02 @ 2L VIA N/C. NO IV. PACEMKAER. PT'S CODE STATUS IS DNR. BED IN LOWEST POSITION AND CALL LIGHT WITHIN REACH.
--- NOTE | 2017-06-10 19:55 | NUR ---
PATIENT SITTING UP IN BED COMPLETING HER MENU. DENIES NEEDS.
--- NOTE | 2017-06-10 23:55 | NUR ---
PT IN BED WITH HOB UP FOR COMFORT. EYES CLOSED. CHEST RISING AND FALLING. BED IN LOWEST POSITION AND CALL LIGHT WITHIN REACH.
--- NOTE | 2017-06-11 03:55 | NUR ---
PT IN BED WITH HOB UP FOR COMFORT. EYES CLOSED. RESP. EVEN. BED IN LOWEST POSITION AND CALL LIGHT WITHIN REACH.
--- NOTE | 2017-06-11 05:59 | NUR ---
PT UP IN W/C. WATCHING TV. CL IN REACH.
[2017-06-11 07:22] LABS: BASOPHILS 0.1 % (0-2); EOSINOPHILS 0.3 % (0-7); HEMATOCRIT 50.3 % (36.0-48.0); HEMOGLOBIN 15.6 g/dL (12-16); IMMATURE GRANULOCYTES 0.7 % (0-5); LYMPHOCYTES 14.4 % (15-50); MCH 29.5 pg (26.0-34.0); MCV 95.3 fL (80.0-100.0); MEAN PLATELET VOLUME 9.6 fL (7.4-10.4); MONOCYTES 9.2 % (2-11); NEUTROPHILS 75.3 % (40-80); PLATELET COUNT 292 10x3/uL (130-400); RBC 5.28 10x6/uL (4.00-5.40); RDW 14.6 % (11.5-14.5); WBC 13.5 10x3/uL (4.8-10.8)
[2017-06-11 07:43] LABS: CALC OSMOLALITY 285 mosm/kg (275-300); CALCIUM 9.6 mg/dL (8.5-10.1); CHLORIDE - SERUM 102 mmol/L (98-107); CREATININE - SERUM 0.5 mg/dL (0.6-1.3); GLUCOSE 76 mg/dL (74-106); POTASSIUM - SERUM 4.5 mmol/L (3.5-5.1); SODIUM 144 mmol/L (136-145); UREA NITROGEN 12 mg/dL (7-18); eGFR NON AFRICAN AMERICAN > 90 mL/min (90-120)
[2017-06-11 07:44] LABS: CARBON DIOXIDE 40.2 mmol/L (21.0-32.0)
--- NOTE | 2017-06-11 08:00 | NUR ---
SITTING IN W/C EATING BREAKFAST. DENIES NEEDS. DENIES INCREASED SOB WITH TRANSFER TO W/C FROM BED. CALL LIGHT IN REACH
--- NOTE | 2017-06-11 08:20 | NUR ---
DR MARTINEZ NOTIFIED OF CARBON DIAOXIDE LEVEL. NO NEW ORDERS.
[2017-06-11 10:19] VITALS: BP 129/48
--- NOTE | 2017-06-11 17:55 | NUR ---
SITTING UP IN BED EATING SUPPER. DENIES NEEDS. CALL LIGHT IN REACH
--- NOTE | 2017-06-11 22:10 | NUR ---
TAKE A SHOWER FOR PT.
[2017-06-12 00:26] VITALS: BP 133/65
--- NOTE | 2017-06-12 01:10 | NUR ---
ASSISTED PT TO BATHROOM AND BACK TO BED.
--- NOTE | 2017-06-12 03:15 | NUR ---
RESTING QUIETLY IN BED WITH SLEEPING MASK IN PLACE. APPEARS COMFORTABLE.
--- NOTE | 2017-06-12 03:22 | NUR ---
REST QUIETLY IN BED, EYE CLOSE, BED LOW, CALL LIGHT WITHIN REACH.
--- NOTE | 2017-06-12 07:22 | NUR ---
RESTING QUIETLY IN BED. EYES CLOSED. CALL LIGHT IN REACH.
[2017-06-12 09:25] VITALS: BP 112/59
--- NOTE | 2017-06-12 12:04 | NUR ---
SITTING IN W/C EATING LUNCH AND WATCHING TV. DENIES NEEDS. USES WALKER AND W/C FOR MOTION ASST. REMAINS OXYGEN DEPENDENT. CALL LIGHT IN REACH
--- NOTE | 2017-06-12 16:51 | NUR ---
EYES CLOSED. LAYING STILL IN BED. APPEARS TO BE SLEEPING. CALL LIGHT IN HAND
--- NOTE | 2017-06-12 20:31 | NUR ---
UP IN WHEELCHAIR PROPELLING SELF AROUND ROOM EARLIER. ASSISTED TO BED AND ALARM IN PLACE AND FUNCTIONING.PLEASANT AND COOPERATIVE, DENIES ANY PAIN.
[2017-06-12 21:11] VITALS: BP 128/63
--- NOTE | 2017-06-12 23:23 | NUR ---
RESTING IN BED WITH EYES CLOSED. NO S/S OF DISTRESS OBSERVED. O2@ 2 LITERS PER NASAL CANNULA IN PLACE. RESPIRATIONS EVEN AND UNLABORED. CALL LIGHT AND OVERBED TABLE IN REACH.
--- NOTE | 2017-06-13 04:28 | NUR ---
RESTING IN BED WITH EYES CLOSED. NO S/S OF DISTRESS OBSERVED. CALL LIGHT AND OVERBEDTABLE IN REACH.
--- NOTE | 2017-06-13 07:04 | NUR ---
RESTING QUIETLY IN BED. NO S/S DISTRESS OR NEEDS. CALL LIGHT IN REACH.
[2017-06-13 09:44] VITALS: BP 124/64
--- NOTE | 2017-06-13 12:01 | NUR ---
RESTING QUIETLY IN BED. EYES CLOSED, OXYGEN IN PLACE. CALL LIGHT IN REACH
--- NOTE | 2017-06-13 17:09 | NUR ---
ROLLING AROUND UNIT IN W/C. STATES SHE IS TIRED OF HER BED.
--- NOTE | 2017-06-13 20:22 | NUR ---
RESTING IN BED WITH EYES CLOSED AT THIS TIME. NO S/S OF DISTRESS OBSERVED. CALL LIGHTH AND OVERBED TABLE IN REACH. BED ALARM IN PLACE AND FUNCTIONING PROPERLY.
--- NOTE | 2017-06-13 21:57 | NUR ---
RESTING IN BED WITH EYES CLOSED. NO S/S OF DISTRESS OBSERVED. CALL LIGHT AND OVERBED TABLE IN REACH. BED ALARM ON.
[2017-06-13 22:12] VITALS: BP 121/61
[2017-06-13 22:54] VITALS: BP 121/60
--- NOTE | 2017-06-14 00:41 | NUR ---
RESTING IN BED WITH EYES CLOSED. NO S/S OF DISTRESS OBSERVED. CALL LIGHT AND OVERBED TABLE IN REACH. BED ALARM IN PLACE.
--- NOTE | 2017-06-14 01:39 | NUR ---
PT RESTING SUPINE POSITION, EYES CLOSED, RESPIRATIONS REGULAR AND UNLABORED, NO S/S OF ACUTE DISTRESS.
[2017-06-14 06:21] LABS: BASOPHILS 0 % (0-2); EOSINOPHILS 0.9 % (0-7); HEMATOCRIT 42.4 % (36.0-48.0); HEMOGLOBIN 13.1 g/dL (12-16); IMMATURE GRANULOCYTES 0.7 % (0-5); LYMPHOCYTES 11.1 % (15-50); MCH 29.2 pg (26.0-34.0); MCHC 30.9 g/dL (31.0-37.0); MCV 94.6 fL (80.0-100.0); MEAN PLATELET VOLUME 9.6 fL (7.4-10.4); MONOCYTES 11.2 % (2-11); NEUTROPHILS 76.1 % (40-80); PLATELET COUNT 238 10x3/uL (130-400); RBC 4.48 10x6/uL (4.00-5.40); RDW 14.8 % (11.5-14.5); WBC 10.7 10x3/uL (4.8-10.8)
--- NOTE | 2017-06-14 06:37 | NUR ---
ASSISTED PT WITH DETANGLING OXYGEN TUBING FROM PT MOVING AROUND ROOM IN W/C.
[2017-06-14 06:39] LABS: CALC OSMOLALITY 283 mosm/kg (275-300); CALCIUM 8.8 mg/dL (8.5-10.1); CHLORIDE - SERUM 106 mmol/L (98-107); CREATININE - SERUM 0.5 mg/dL (0.6-1.3); GLUCOSE 98 mg/dL (74-106); POTASSIUM - SERUM 4.2 mmol/L (3.5-5.1); SODIUM 143 mmol/L (136-145); UREA NITROGEN 9 mg/dL (7-18); eGFR NON AFRICAN AMERICAN > 90 mL/min (90-120)
--- NOTE | 2017-06-14 07:30 | NUR ---
PT IS SITTING IN HER WC IN HER ROOM FEEDING SELF BREAKFAST WITHOUT DIFFICULTY. NO SWALLOWING PROBLEMS NOTED. PT IS ALERT AND ORIENTED X 3. DENIES ANY PAIN OR DISCOMFORT AT THIS TIME. NO SOB NOTED. SR'S ARE UP X 2 IN BED. CALL LIGHT AND BEDSIDE TABLE ARE WITHIN EASY REACH.
[2017-06-14 07:31] VITALS: BP 132/63
--- NOTE | 2017-06-14 09:43 | NUR ---
PT IS PARTICIPATING IN THERAPY AT THIS TIME.
--- NOTE | 2017-06-14 12:15 | NUR ---
PT IS FEEDING SELF LUNCH IN HER ROOM. NO ACUTE DISTRESS NOTED.
--- NOTE | 2017-06-14 13:34 | NUR ---
PT IS PARTICIPATING IN THERAPY AT THIS TIME.
--- NOTE | 2017-06-14 14:21 | NUR ---
PT SITTING UP IN BED, DENIES NEEDS. WCTM.
--- NOTE | 2017-06-14 17:44 | NUR ---
PT IS FEEDING SELF SUPPER IN HIS ROOM. NO ACUTE DISTRESS NOTED.
[2017-06-14 18:48] VITALS: BP 139/56
--- NOTE | 2017-06-14 19:17 | NUR ---
RESTING IN BED WITH EYES CLOSED. NO S/S OF DISTRESS OBSERVED. CALL LIGHT AND BED SIDE TABLE IN REACH. PATRICK ALARM IN PLACE AND FUNCTIONAL.
--- NOTE | 2017-06-14 20:26 | NUR ---
UP IN BED WITH FAMILY AT BEDSIDE. EXCITED ABOUT GOING HOME TOMORROW. DENIES ANY PAIN. O2@2 LITERS PER N/C IN PLACE. ALARM IN PLACE.
--- NOTE | 2017-06-14 21:43 | NUR ---
RESTING IN BED WITH EYES CLOSED. FEET ELEVATED WITH NO EDEMA PRESENT. DENIES ANY PAIN OR DISCOMFORT.
--- NOTE | 2017-06-15 03:58 | NUR ---
RESTING IN BED WITH EYES CLOSED. NO S/S OF DISTRESS OBSERVED. ASSISTED TO TOILET EARLIER. INDEPENDENT WITH TRANSFERS AND REQUIRES SUPERVISION. DENIED ANY PAIN. ASSISTED BACK TO BED AND ALARM IN PLACE. CALL LIGHT AND OVERBED TABLE IN REACH. O2@2 LITERS PER NASAL CANNULA IN PLACE. NO SOB OBSERVED.
--- NOTE | 2017-06-15 06:12 | NUR ---
RESTING IN BED WITH EYES CLOSED. NO S/S OF DISTRESS OBSERVED. EASILY AROUSES WITH VERBAL STIMULI. SUPERVISED TO TOILET. TAKES MEDICATION WHOLE WITHOUT DIFFICULTY. VOICES EXCITMENT ABOUT GOING HOME TODAY.
--- NOTE | 2017-06-15 07:39 | NUR ---
PT RESTING IN BED WITH EYES OPEN CALL LIGHT IN REACH WILL MONITER
[2017-06-15 07:40] VITALS: BP 120/54
--- NOTE | 2017-06-15 08:00 | NUR ---
PT EATING BREAKFAST, DENIES NEEDS.
--- NOTE | 2017-06-15 09:30 | NUR ---
PT DISCHARGE TO HOME WITH SON DISCHARGE SUMMARY AND MEDS REVIEWED WITH PT NO QUESTIONS TOLERATED WELL
--- NOTE | 2017-06-15 09:39 | NUR ---
PATIENT DISCHARGING HOME WITH FAMILY. [facility] WILL FOLLOW WITH PATIENT AT HOME. NO NEW DME NEEDED AT THIS TIME. DR. HEALY 06/23/17 @ 10:30. PATIENT CHOICE FORM FOR HOME HEALTH AND [facility] FORM SIGNED, EXPLAINED AND FILED IN CHART.ORDERS HAVE BEEN FAXED WITH CONFORMATION RECIEVED
== END 2017-06-15 11:40 | disposition home health service (06) | DRG 91 ==
LOC: D.REHAB 19:20
PROVIDERS: ADMIT Emergency Medicine
DX: G72.89 Other specified myopathies (principal); J18.9 Pneumonia, unspecified organism; J96.02 Acute respiratory failure with hypercapnia; J96.01 Acute respiratory failure with hypoxia; J44.1 Chronic obstructive pulmonary disease with (acute) exacerbation; R53.1 Weakness; I10 Essential (primary) hypertension; Z66 Do not resuscitate; I50.9 Heart failure, unspecified; Z95.0 Presence of cardiac pacemaker

== ENCOUNTER 2017-06-17 11:13 | Emergency (ER) | payer MEDICARE, BC ==
[2017-06-10 15:41] VITALS: BMI 25.1
[2017-06-17 12:25] LABS: CALC OSMOLALITY 274 mosm/kg (275-300); CALCIUM 9.1 mg/dL (8.5-10.1); CARBON DIOXIDE 36.1 mmol/L (21.0-32.0); CHLORIDE - SERUM 101 mmol/L (98-107); CREATININE - SERUM 0.6 mg/dL (0.6-1.3); POTASSIUM - SERUM 4.6 mmol/L (3.5-5.1); SODIUM 140 mmol/L (136-145); UREA NITROGEN 8 mg/dL (7-18); eGFR NON AFRICAN AMERICAN > 90 mL/min (90-120)
[2017-06-17 12:40] LABS: GLUCOSE 70 mg/dL (74-106)
[2017-06-17 12:42] LABS: BASOPHILS 0 % (0-2); EOSINOPHILS 1.3 % (0-7); HEMATOCRIT 42.5 % (36.0-48.0); IMMATURE GRANULOCYTES 0.3 % (0-5); LYMPHOCYTES 10.2 % (15-50); MCHC 30.6 g/dL (31.0-37.0); MCV 94.9 fL (80.0-100.0); MEAN PLATELET VOLUME 9.8 fL (7.4-10.4); MONOCYTES 12.9 % (2-11); NEUTROPHILS 75.3 % (40-80); PLATELET COUNT 223 10x3/uL (130-400); RBC 4.48 10x6/uL (4.00-5.40); RDW 14.8 % (11.5-14.5); WBC 8.7 10x3/uL (4.8-10.8)
== END 2017-06-17 13:21 | disposition home or self-care (01) ==
LOC: D.ER 11:13
PROVIDERS: Nurse Practitioner Acute Care
DX: J44.1 Chronic obstructive pulmonary disease with (acute) exacerbation (principal); Z95.0 Presence of cardiac pacemaker; R06.02 Shortness of breath

== ENCOUNTER 2017-10-22 12:46 | Inpatient (IN) | payer MEDICARE, BC ==
[~2017-10-22] VITALS: Ht 160 cm; Wt 59.7 kg
[2017-10-22 13:47] LABS: HEMATOCRIT 46.8 % (36.0-48.0); HEMOGLOBIN 14.3 g/dL (12-16); LYMPHOCYTES 7.9 % (15-50); MCH 26.5 pg (26.0-34.0); MCHC 30.6 g/dL (31.0-37.0); MCV 86.7 fL (80.0-100.0); MEAN PLATELET VOLUME 9.8 fL (7.4-10.4); PLATELET COUNT 213 10x3/uL (130-400); RDW 13.7 % (11.5-14.5); WBC 8.6 10x3/uL (4.8-10.8)
[2017-10-22 13:49] LABS: ALBUMIN 3.4 g/dL (3.4-5.0); ALKALINE PHOSPHATASE 106 U/L (46-116); ALT (SGPT) 15 U/L (10-68); BILIRUBIN - TOTAL 0.38 mg/dL (0.2-1.3); CALC OSMOLALITY 274 mosm/kg (275-300); CALCIUM 9.7 mg/dL (8.5-10.1); CARBON DIOXIDE 31.5 mmol/L (21.0-32.0); CHLORIDE - SERUM 101 mmol/L (98-107); CREATININE - SERUM 0.6 mg/dL (0.6-1.3); GLUCOSE 119 mg/dL (74-106); POTASSIUM - SERUM 4.7 mmol/L (3.5-5.1); PROTEIN - SERUM 7.1 g/dL (6.4-8.2); SODIUM 137 mmol/L (136-145); UREA NITROGEN 12 mg/dL (7-18); eGFR NON AFRICAN AMERICAN > 90 mL/min (90-120)
[2017-10-22 14:02] LABS: CKMB 4.2 U/L (0.0-3.6); CREATINE KINASE 69 UL (21-215); PRO BNP 570 pg/mL (0-450); TROPONIN-I 0.025 ng/mL (0.000-0.060)
[2017-10-22 17:19] VITALS: BP 120/96; BMI 23.5
--- NOTE | 2017-10-22 17:20 | NUR ---
PT RECEIVED TO ROOM FROM ER. PT ABLE TO AMBULATE FROM STRETCHER TO BED WITH MINIMAL ASSIST. RR ELEVATED BUT UNLABORED. AFTER PT WAS SUPINE IN BED, RR BECAME UNLABORED AND REGULAR. VSS, BP SYSTOLIC IS SLIGHTLY ELEVATED. PT REPORTS NO PAIN. ORIENTED PT TO UNIT. NS RUNNING AT 75MLS/HR PER ORDERS. FALL SOCKS GIVEN TO PT, INSTRUCTED TO CALL FOR ASSISTANCE WHEN NEEDED.
--- NOTE | 2017-10-22 17:50 | NUR ---
UPDATED MED LIST PER PT RECOLLECTION. PT IS UNSURE OF ALL THE MEDS SHE IS ON. ATTEMPTED TO CALL [facility] IN THE [facility] FOR UPDATED MED LIST. NURSE WELT SEWER DID NOT ANSWER, LEFT MESSAGE WITH NUMBER FOR CALL BACK. WILL PASS ALONG IN SHIFT REPORT REGARDING MED REC NOT BEING ACCURATE.
--- NOTE | 2017-10-22 17:56 | NUR ---
SPOKE TO DONOVAN BRYANT ABOUT PT BEING ADMITTED. PT VERBALIZED THAT HE WAS HER POA AND I COULD SPEAK TO HIM ABOUT HER CONDTION. GAVE ME HIS NUMBER IN CASE OF EMERGENCIES.
--- NOTE | 2017-10-22 18:30 | NUR ---
SPOKE TO ALYSE FROM [facility]. REPORTED THAT HE WOULD FAX OVER MED SHEET. WILL PASS ALONG IN SHIFT REPORT.
[2017-10-22 20:59] VITALS: BP 152/60
[2017-10-22] MEDS ORDERED: ACETAMINOPHEN500 M1 PO (21:34)
[2017-10-22] MEDS ORDERED: PROVENTIL/2.5 MG/3 M INH (21:35)
[2017-10-22] MEDS ORDERED: BREO ELLIPTA 21 EACH (21:36)
[2017-10-22] MEDS ORDERED: BENADRYL25 MG PO (21:36)
[2017-10-22] MEDS ORDERED: PRADAXA150 MG PO (21:37)
[2017-10-22] MEDS ORDERED: PHENERGAN25 M1 PO (21:38)
[2017-10-23 01:13] VITALS: BP 138/67
--- NOTE | 2017-10-23 03:00 | NUR ---
PATIENT IS RESTING WELL IN BED, RESPIRATIONS EVEN AND UNLABORED, CALL LIGHT IN REACH. WILL CONTINUE PLAN OF CARE.
[2017-10-23 04:21] LABS: BASOPHILS 0 % (0-2); EOSINOPHILS 0 % (0-7); HEMATOCRIT 42.7 % (36.0-48.0); HEMOGLOBIN 12.8 g/dL (12-16); LYMPHOCYTES 11.5 % (15-50); MCH 27.1 pg (26.0-34.0); MEAN PLATELET VOLUME 9.8 fL (7.4-10.4); MONOCYTES 7.2 % (2-11); NEUTROPHILS 81.3 % (40-80); PLATELET COUNT 176 10x3/uL (130-400); RBC 4.72 10x6/uL (4.00-5.40); RDW 13.9 % (11.5-14.5)
[2017-10-23 04:22] LABS: MCV 90.5 fL (80.0-100.0); WBC 3.5 10x3/uL (4.8-10.8)
[2017-10-23 04:36] LABS: ALBUMIN 2.7 g/dL (3.4-5.0); ALKALINE PHOSPHATASE 90 U/L (46-116); ALT (SGPT) 15 U/L (10-68); CALC OSMOLALITY 288 mosm/kg (275-300); CALCIUM 9.2 mg/dL (8.5-10.1); CARBON DIOXIDE 34.1 mmol/L (21.0-32.0); CHLORIDE - SERUM 106 mmol/L (98-107); CREATININE - SERUM 0.5 mg/dL (0.6-1.3); GLUCOSE 146 mg/dL (74-106); POTASSIUM - SERUM 4.9 mmol/L (3.5-5.1); PROTEIN - SERUM 5.9 g/dL (6.4-8.2); SODIUM 143 mmol/L (136-145); UREA NITROGEN 14 mg/dL (7-18); eGFR NON AFRICAN AMERICAN > 90 mL/min (90-120)
[2017-10-23 04:51] VITALS: BP 139/62
--- NOTE | 2017-10-23 07:00 | NUR ---
RECEIVED REPORT. ASSUMED CARE OF PATIENT. CALL LIGHT WITHIN REACH. PATIENT RESTING WITH EYES CLOSED. RESP EVEN AND UNLABORED. EASILY AROUSED. DENIES NEEDS AT THIS TIME. NO DISTRESS.
[2017-10-23 08:49] VITALS: BP 127/45
--- NOTE | 2017-10-23 10:44 | NUR ---
ASSISTED PATIENT OOB TO RESTROOM. NO DISTRESS.
[2017-10-23 11:51] VITALS: BP 108/48
[2017-10-23 12:09] VITALS: Ht 160 cm; Wt 59.7 kg
--- NOTE | 2017-10-23 14:30 | NUR ---
ASSISTED PATIENT OOB TO RESTROOM AND BACK TO BED. CALL LIGHT WITHIN REACH. NO DISTRESS. DENIES NEEDS AT THIS TIME.
[2017-10-23 15:47] VITALS: BP 148/61
--- NOTE | 2017-10-23 17:45 | NUR ---
RESTING IN BED WITH EYES CLOSED. EASILY AROUSED. NO DISTRESS.
[2017-10-23 21:24] VITALS: BP 114/43
[2017-10-24 04:00] VITALS: BP 132/55
[2017-10-24 05:38] LABS: BASOPHILS 0 % (0-2); EOSINOPHILS 0 % (0-7); HEMOGLOBIN 13.5 g/dL (12-16); IMMATURE GRANULOCYTES 0.3 % (0-5); LYMPHOCYTES 5.7 % (15-50); MCH 27.2 pg (26.0-34.0); MCV 90.5 fL (80.0-100.0); MEAN PLATELET VOLUME 10.1 fL (7.4-10.4); MONOCYTES 5.9 % (2-11); NEUTROPHILS 88.1 % (40-80); PLATELET COUNT 180 10x3/uL (130-400); RBC 4.97 10x6/uL (4.00-5.40)
[2017-10-24 05:44] LABS: WBC 6.6 10x3/uL (4.8-10.8)
[2017-10-24 05:58] LABS: ALBUMIN 2.8 g/dL (3.4-5.0); ALKALINE PHOSPHATASE 87 U/L (46-116); ALT (SGPT) 16 U/L (10-68); CALC OSMOLALITY 284 mosm/kg (275-300); CALCIUM 9.8 mg/dL (8.5-10.1); CARBON DIOXIDE 35.9 mmol/L (21.0-32.0); CHLORIDE - SERUM 103 mmol/L (98-107); CREATININE - SERUM 0.6 mg/dL (0.6-1.3); GLUCOSE 160 mg/dL (74-106); POTASSIUM - SERUM 4.3 mmol/L (3.5-5.1); PROTEIN - SERUM 6.2 g/dL (6.4-8.2); SODIUM 141 mmol/L (136-145); UREA NITROGEN 16 mg/dL (7-18); eGFR NON AFRICAN AMERICAN > 90 mL/min (90-120)
--- NOTE | 2017-10-24 06:06 | NUR ---
JULIETA NOTE: PT REQUESTING TO USE BATHROOM. ASSISTED PATIENT TO RESTROOM AND BACK TO BED. PT HAS STEADY GAIT. PT IS A,A,OX3. AMBULATING W/ STEADY GAIT. IV ACCESS VIA LEFT FOREARM SALINE LOC. WILL CONT TO MONITOR.
--- NOTE | 2017-10-24 06:07 | NUR ---
IN TO ASSIST PT TO BATHROOM TWICE, OTHER THAN THAT PT HAS BEEN RESTING COMFORTABLY WITH EYES CLOSED FOR THE REST OF THE SHIFT WITHOUT COMPLAINTS. WILL CONT TO MONITOR.
--- NOTE | 2017-10-24 07:10 | NUR ---
RECEIVED REPORT. ASSUMED CARE OF PATIENT. RESTING WELL WITH EYES CLOSED, RESP EVEN AND UNLABORED. EASILY AROUSED. DENIES NEEDS. NO DISTRESS. CALL LIGHT WITHIN REACH.
[2017-10-24 09:34] VITALS: BP 114/45
[2017-10-24 12:16] VITALS: BP 123/44
--- NOTE | 2017-10-24 14:23 | NUR ---
RESTING IN BED WITH EYES OPEN. NO DISTRESS. CALL LIGHT WITHIH REACH. DENIES NEEDS.
[2017-10-24 16:12] VITALS: BP 126/51
--- NOTE | 2017-10-24 17:55 | NUR ---
20 GAUGE IV PLACED TO LEFT HAND X 1 STICK. GOOD BLOOD RETURN, EASY FLUSH. TAPED, DATED AND SECURED. TOLERATED IV PLACEMENT WELL. 20 GAUGE IV REMOVED FROM RIGHT WRIST PATIENT COMPLAINING OF PAIN. CATHETER TIP INTACT. NO BLEEDING FROM SITE. 2X2 GAUZE APPLIED AND SECURED WITH TAPE. NO DISTRESS.
[2017-10-24 21:46] VITALS: BP 139/67
[2017-10-25] VITALS: BP 99/62
--- NOTE | 2017-10-25 02:26 | NUR ---
PT IN BED WITH HOB UP FOR COMFORT. EYES CLSOED. CHEST RISING AND FALLING. 02 @ 4L VIA NC. LEFT HAND DOXYCLINE 125ML/HR. BED IN LOWEST POSITION AND CALL LIGHT WITHIN REACH.
[2017-10-25 03:27] LABS: BASOPHILS 0 % (0-2); EOSINOPHILS 0 % (0-7); HEMATOCRIT 46.8 % (36.0-48.0); IMMATURE GRANULOCYTES 0.2 % (0-5); LYMPHOCYTES 7.3 % (15-50); MCH 27.1 pg (26.0-34.0); MCHC 29.9 g/dL (31.0-37.0); MCV 90.7 fL (80.0-100.0); MONOCYTES 9.2 % (2-11); NEUTROPHILS 83.3 % (40-80); PLATELET COUNT 213 10x3/uL (130-400); RBC 5.16 10x6/uL (4.00-5.40); RDW 14.1 % (11.5-14.5); WBC 8.7 10x3/uL (4.8-10.8)
[2017-10-25 03:58] LABS: ALBUMIN 2.9 g/dL (3.4-5.0); ALKALINE PHOSPHATASE 86 U/L (46-116); ALT (SGPT) 16 U/L (10-68); CALC OSMOLALITY 278 mosm/kg (275-300); CALCIUM 9.8 mg/dL (8.5-10.1); CARBON DIOXIDE 35.4 mmol/L (21.0-32.0); CHLORIDE - SERUM 101 mmol/L (98-107); CREATININE - SERUM 0.6 mg/dL (0.6-1.3); GLUCOSE 154 mg/dL (74-106); POTASSIUM - SERUM 4.5 mmol/L (3.5-5.1); PROTEIN - SERUM 6.3 g/dL (6.4-8.2); SODIUM 138 mmol/L (136-145); UREA NITROGEN 13 mg/dL (7-18); eGFR NON AFRICAN AMERICAN > 90 mL/min (90-120)
[2017-10-25 05:33] VITALS: BP 128/56
[2017-10-25] MEDS ORDERED: BROVANA15 MCG/2 M INH (06:35)
[2017-10-25] MEDS ORDERED: IPRAT-ALBUT 0.5-3 ML UPD (06:36)
[2017-10-25] MEDS ORDERED: DOXYCYCLINE HY100 M2 PO (06:36)
[2017-10-25] MEDS ORDERED: STERAPRED DS 1210 MG PO (06:37)
--- NOTE | 2017-10-25 07:30 | NUR ---
REPORT RECEIVED. RR EVEN AND UNLABORED, PT DENIES NEEDS AT THIS TIME. REPORTS WANTING TO GO HOME. REPORTED THAT DR. HEALY CAME BY AND REPORTED THAT HE WILL BE SENDING HER HOME TODAY. WILL CTM.
[2017-10-25 08:52] VITALS: BP 122/66
--- NOTE | 2017-10-25 11:08 | NUR ---
Patient Name: DALTON SOARES Admission Status: ER Accout number: [id number] Admission Date: 10-22-2017 : 1935 Admission Diagnosis: Attending: YSABEL GUERIN Current LOS: 3 Anticipated DC Date: 10-25-2017 Planned Disposition: Assisted Living Primary Insurance: MEDICARE A & B PLANNED EXTERNAL PROVIDER: [facility] Discharge Planning Comments: * Is the patient Alert and Oriented? Yes 0 * How many steps to enter\\exit or inside your home? NONE 0 * PCP DR. HEALY 0 * Pharmacy [facility] IN [place] [phone] 0 * Preadmission Environment Assisted Living 0 * Facility Name [facility] [phone] 0 * ADLs Partial Dependent 0 * Partial ADLs (Assistance needed) Medication Management 0 * Equipment Cane Nebulizer Oxygen Rolling Walker 0 * Other Equipment PORTABLE OXYGEN CONCENTRATOR [facility] - [phone] 0 * List name and contact numbers for known caregivers / representatives who currently or will assist patient after discharge: [place] SOARES, SON, 0 * Community resources currently utilized None 0 * Please name any agencies selected above. NONE 0 * Additional services required to return to the preadmission environment? No 0 * Can the patient safely return to the preadmission environment? Yes 0 * Has this patient been hospitalized within the prior 30 days at any hospital? No 0 CM RECEIVED ORDERS FOR DISCHARGE, TO ENSURE PT HAS WORKING PORTABLE OXYGEN AND TO SEE IF PT NEEDS NEB MEDS TO GO THROUGH HER PHARMACY OR MAIL ORDER DME COMPANY. CM MET WITH PT IN ROOM TO DISCUSS DISCHARGE PLANNING AND NEEDS. PT REPORTS LIVING AT [facility]. PT REQUIRES ASSISTANCE WITH MEAL PREPARATION, MEDICATION MANAGEMENT AND TRANSPORTATION. PT HAS CANE, NEBULIZER, PORTABLE OXYGEN CONCENTRATOR AND ROLLING WALKER FROM [facility]. PT HAS NO OUTSIDE SERVICES ASSISTING IN THE HOME. CM DISCUSSED AVAILABILITY OF HOME HEALTH, REHAB SERVICES AND MEDICAL EQUIPMENT. PT REPORTS HER PORTABLE CONCENTRATOR HAS NOT BEEN WORKING AND ONLY HOLDS A CHARGE FOR LESS THAN 30 MINUTES. PT DENIES DISCHARGE NEEDS, STATES THAT SHE HAD HOME HEALTH BUT IT WAS A "WASTE OF TIME". PT REPORTS [facility] WILL PICK HER UP FOR DISCHARGE HOME AND ASKED CM TO CALL THEM. IMPORTANT MESSAGE FROM MEDICARE PROVIDED AND EXPLAINED. CM CALLED [facility], , SPOKE TO NURSE CLAY WHO STATED THAT SHE DOES NOT NEED NURSE REPORT AND TO FAX DISCHARGE INFORMATION TO [facility] AT [phone]. DANNA REPORTS PT GETS HER NEB MEDICATIONS FROM DME MAIL ORDER AND IT WILL PROBABLY BE CHEAPEST WAY FOR PT TO RECEIVE THEM; WILL ASKED THAT [facility] AND [facility] IN [place] GET THE INFORMATION SO THAT PT CAN GET SHORT SUPPLY FROM PHARMACY AND MAIL ORDER THE REMAINDER OF NEB MEDICATIONS. DEVYN FAXED DISCHARGE INFORMATION REQUESTED TO [facility]. LOAD CHECKER NURSE NOTIFIED WHO WILL CALL PT'S PHARMACY. DEVYN CALLED [facility], , SPOKE TO TONJA WHO REPORTED THAT THEY WILL DELIVER PORTABLE OXYGEN TO PT'S ROOM THIS MORNING FOR DISCHARGE AND WILL ARRANGE OXYGEN SERVICES AT PT'S ASSISTED LIVING WELL CHECK PT'S PORTABLE CONCENTRATOR FOR NEEDED REPAIR OR REPLACEMENT. TONJA WILL FORWARD PT'S REPORTS THEY WILL SEND A VAN TO CONFERENCE INTERPRETER PT SOON OXYGEN ARRIVES AT HOSPITAL FROM [facility] AND TO CALL FOR VAN WHEN READY. DEVYN NOTIFIED PT IN ROOM. PT IN AGREEMENT WITH DISCHARGE PLAN, WILL AWAIT OXYGEN FROM [facility] FOR DISCHARGE HOME THIS MORNING. ONCE OXYGEN ARRIVES, CALL [facility] FOR TRANSPORTATION AT [phone]. Dispatch Manager: Salvador Rodriguez
--- NOTE | 2017-10-25 12:00 | NUR ---
PT DISCHARGED. D/C INSTRUCTIONS PROVIDED TO PT, PAPERWORK SIGNED. TELE REMOVED AND RETURNED TO [facility] [employer] PRICING CONSULTANT. IV CATHETER REMOVED WITH CATHETER TIP INTACT. PTS HOME O2 HAS BEEN DELIVERED. PT WILL BE PICKED UP BY [facility]. DENIES FURTHER QUESTIONS AND NEEDS.
--- NOTE | 2017-11-18 14:06 | CN ---
PATIENT NAME:DALTON WALKER MEDICAL RECORD: [id number] : 33 LOCATION:. D.[id number] ADMIT DATE: 10/22/17 ACCOUNT: [id number] CONSULTING PHYSICIAN: JILLIAN CHENEY MD REFERRING PHYSICIAN: CRISTIAN GUERIN DO DATE OF CONSULTATION: 10/22/2017 PULMONARY CONSULTATION CONSULT REQUESTING PHYSICIAN: Cristian Guerin DO REASON FOR CONSULTATION: Shortness of breath. HISTORY OF PRESENT ILLNESS: Ms. Walker is an 82-year-old female, who is a very poor historian. According to the patient, she is sick for the last 6-7 days. Initially, she has a cold-like symptom. She was coughing. She has generalized body aches and pain. There were no fever or chills. No night sweats. REVIEW OF SYSTEMS: As in history of present illness. PAST MEDICAL HISTORY: 1. COPD. 2. Chronic hypoxic respiratory failure. 3. Asthma. 4. Hypothyroidism. 5. Hypertension. 6. History of cardiac arrhythmia status post pacemaker placement. 7. Anxiety, depression. PAST SURGICAL HISTORY: 1. Cholecystectomy. 2. Cataract surgery. 3. Status post defibrillator placement. 4. History of hip fracture with ORIF. ALLERGIES: ALLERGIC TO PENICILLIN. MEDICATIONS: On NorSun, is reviewed. PERSONAL AND SOCIAL HISTORY: The patient is an ex-smoker. She is a nondrinker. FAMILY HISTORY: Noncontributory. PHYSICAL EXAMINATION: GENERAL: Now, the patient is lying comfortably. She is not in acute distress. VITAL SIGNS: The blood pressure is 108/48, pulse is 96, respiration is 16, temperature is 98.2, SPO2 is 93% on 3.5 liters nasal cannula. HEENT: Conjunctivae pink, sclerae nonicteric. NECK: Supple, no JVD. CHEST: Chest excursion is minimal on both sides. There is wheeze on forceful expiration. HEART: Rhythm regular, normal sound, no murmur. ABDOMEN: Soft, bowel sounds present. No hepatosplenomegaly. RECTAL: Deferred. CONSULT REPORT [id number] DALTON WALKER EXTREMITIES: No cyanosis, no clubbing, no pedal edema. SKIN: Warm, normal turgor. CENTRAL NERVOUS SYSTEM: The patient is awake and alert. There are no obvious cranial nerve abnormalities. The gait was not tested. IMAGING: Chest radiograph, there is increased interstitial marking. There is no consolidation as such. OTHER LABORATORY DATA: CBC: WBC 8.6, hemoglobin 14.3, hematocrit 46.8. The platelet count is 213. Chemistry: Sodium 143, potassium 4.9, BUN is 14, creatinine 0.5, bicarb is 34.1. IMPRESSION: 1. Acute exacerbation of chronic obstructive pulmonary disease. 2. Tracheobronchitis, possible pneumonitis consistent with community-acquired pneumonia. 3. Swatu-co-dorfkaq hypoxic respiratory failure. 4. Chronic obstructive pulmonary disease, asthma overlap syndrome. 5. Mild elevated proBNP. I would doubt congestive heart failure. RECOMMENDATION: Discontinue IV fluid, Lasix 40 mg times 1, start her on doxycycline 100 mg b.i.d. Start methylprednisolone IV, albuterol/ipratropium nebulizer q.6 hourly, albuterol nebulizer q.2 hourly p.r.n., and Brovana, budesonide nebulizer. Discontinue p.o. prednisone. Start methylprednisolone IV. Follow up labs and chest radiograph. Dr. Guerin, thank you for involving me in the care of Ms. Walker. TRANSINT:[id number] Voice Confirmation ID: [id number] DOCUMENT ID: [id number] JILLIAN CHENEY MD at 1406 CC: CRISTIAN GUERIN DO [id number] DICTATION DATE: 10/23/17 1409 IGNITION SPECIALIST: 10/24/17 0128 DIS IN 10/25/17 [id number] [place] [address]
== END 2017-10-25 12:25 | disposition home or self-care (01) | DRG 193 ==
LOC: D.ER 12:46 → D.M2 16:14
PROVIDERS: Emergency Medicine; ADMIT Family Medicine
DX: J18.9 Pneumonia, unspecified organism (principal); J96.21 Acute and chronic respiratory failure with hypoxia; J44.0 Chronic obstructive pulmonary disease with (acute) lower respiratory infection; J44.1 Chronic obstructive pulmonary disease with (acute) exacerbation; M35.1 Other overlap syndromes; I10 Essential (primary) hypertension; Z95.0 Presence of cardiac pacemaker; F41.8 Other specified anxiety disorders; Z87.891 Personal history of nicotine dependence

== ENCOUNTER 2017-10-27 10:16 | Inpatient (IN) | payer MEDICARE, BC ==
[~2017-10-27] VITALS: Ht 160 cm; Wt 62.6 kg
[~2017-10-27 10:16] MED LIST changes: +ACETAMINOPHEN500 M1 PO; +BENADRYL25 MG PO; +BREO ELLIPTA 21 EACH; +BROVANA15 MCG/2 M INH; +DOXYCYCLINE HY100 M2 PO; +IPRAT-ALBUT 0.5-3 ML UPD; +PHENERGAN25 M1 PO; +PRADAXA150 MG PO; +PROVENTIL/2.5 MG/3 M INH; +STERAPRED DS 1210 MG PO
[2017-10-27 11:07] LABS: BASOPHILS 0 % (0-2); EOSINOPHILS 0 % (0-7); HEMATOCRIT 50.8 % (36.0-48.0); IMMATURE GRANULOCYTES 0.1 % (0-5); LYMPHOCYTES 7.7 % (15-50); MCH 27.6 pg (26.0-34.0); MCHC 29.5 g/dL (31.0-37.0); MCV 93.4 fL (80.0-100.0); NEUTROPHILS 82.2 % (40-80); PLATELET COUNT 181 10x3/uL (130-400); RBC 5.44 10x6/uL (4.00-5.40); RDW 13.7 % (11.5-14.5)
[2017-10-27 11:29] LABS: ALKALINE PHOSPHATASE 97 U/L (46-116); ALT (SGPT) 21 U/L (10-68); BILIRUBIN - TOTAL 0.59 mg/dL (0.2-1.3); CALC OSMOLALITY 287 mosm/kg (275-300); CALCIUM 9.8 mg/dL (8.5-10.1); CHLORIDE - SERUM 100 mmol/L (98-107); CREATININE - SERUM 0.5 mg/dL (0.6-1.3); GLUCOSE 120 mg/dL (74-106); POTASSIUM - SERUM 4.8 mmol/L (3.5-5.1); PROTEIN - SERUM 6.7 g/dL (6.4-8.2); SODIUM 144 mmol/L (136-145); UREA NITROGEN 13 mg/dL (7-18); eGFR NON AFRICAN AMERICAN > 90 mL/min (90-120)
[2017-10-27 11:30] LABS: CARBON DIOXIDE 45.5 mmol/L (21.0-32.0)
[2017-10-27 11:34] LABS: APPEARANCE HAZY (CLEAR); BILIRUBIN NEGATIVE (NEGATIVE); COLOR YELLOW (YELLOW); GLUCOSE NEGATIVE (NEGATIVE); KETONE NEGATIVE (NEGATIVE); NITRITE NEGATIVE (NEGATIVE); PROTEIN TRACE mg/dL (NEGATIVE); SPECIFIC GRAVITY 1.015 (1.005-1.020); UROBILINOGEN NORMAL (NORMAL)
[2017-10-27 11:37] LABS: BACTERIA FEW /hpf (NONE SEEN); EPITHELIAL CELLS 0-5 /hpf (0-5); MUCUS <1+ /lpf (NONE SEEN); RED CELLS - URINE 0-5 /hpf (0-5); WHITE CELLS - URINE 0-5 /hpf (0-5)
[2017-10-27 11:39] LABS: HYALINE CAST 0-5 /lpf (NONE SEEN)
[2017-10-27 12:33] LABS: TROPONIN-I 0.038 ng/mL (0.000-0.060)
[2017-10-27 15:45] VITALS: BP 143/69; BMI 25.9
--- NOTE | 2017-10-27 17:53 | NUR ---
1500 PT ARRIVED FROM ER VIA STRETCHER. VERY CONFUSED. DOES ANSWER TO NAME BUT NOT ORIENTED TO SITUATION,PLACE AND TIME. RESP PLACED ON BIPAP. MONITOR SHOWS A FLUTTER. SEE ASSESSMENT FOR EVAL.
--- NOTE | 2017-10-27 18:38 | NUR ---
18 FR CAR INSERTED WITH CLEAR URINE OBTAINED. PT IS MORE COHERENT. DR DAWKINS HERE. BIPAP OFF SO PT CAN EAT. PT IS ON NC @ 4L.
--- NOTE | 2017-10-27 19:59 | NUR ---
RESUMED CARE OF PT, LYING IN BED RESPIRATIONS EVEN AND UNLABORED ON BIPAP. 80 PACED ON TELEMETRY. RIGHT HAND SALINE LOCKED. CAR TO GRAVITY. CALL LIGHT IN REACH. WILL CONTINUE TO MONITOR. SEE NURSE ASSESSMENT.
[2017-10-27 20:00] VITALS: BP 137/66
--- NOTE | 2017-10-27 22:20 | NUR ---
BACK FROM CT
[2017-10-28 00:21] VITALS: BP 110/65
[2017-10-28 04:55] LABS: BASOPHILS 0 % (0-2); EOSINOPHILS 0 % (0-7); HEMATOCRIT 46.9 % (36.0-48.0); HEMOGLOBIN 14.1 g/dL (12-16); IMMATURE GRANULOCYTES 0.2 % (0-5); LYMPHOCYTES 7.7 % (15-50); MCH 27.2 pg (26.0-34.0); MCHC 30.1 g/dL (31.0-37.0); MEAN PLATELET VOLUME 10.1 fL (7.4-10.4); MONOCYTES 2.8 % (2-11); NEUTROPHILS 89.3 % (40-80); PLATELET COUNT 174 10x3/uL (130-400); RBC 5.18 10x6/uL (4.00-5.40); RDW 13.7 % (11.5-14.5); WBC 6.4 10x3/uL (4.8-10.8)
[2017-10-28 04:58] VITALS: BP 131/65
--- NOTE | 2017-10-28 05:01 | NUR ---
BIOINFORMATICIAN AT BEDSIDE TO OBTAIN VITALS, CALL LIGHT IN REACH. WILL CONTINUE WITH PLAN OF CARE.
[2017-10-28 05:07] LABS: MCV 90.5 fL (80.0-100.0)
[2017-10-28 05:24] LABS: CALC OSMOLALITY 290 mosm/kg (275-300); CALCIUM 9.6 mg/dL (8.5-10.1); CHLORIDE - SERUM 97 mmol/L (98-107); CREATININE - SERUM 0.7 mg/dL (0.6-1.3); GLUCOSE 129 mg/dL (74-106); POTASSIUM - SERUM 3.5 mmol/L (3.5-5.1); SODIUM 144 mmol/L (136-145); UREA NITROGEN 18 mg/dL (7-18); eGFR NON AFRICAN AMERICAN 85 mL/min (90-120)
[2017-10-28 05:26] LABS: CARBON DIOXIDE 43.8 mmol/L (21.0-32.0)
--- NOTE | 2017-10-28 06:11 | NUR ---
AM MEDS PASSED, NO CHANGES FROM PREVIOUS ASSESSMENT. CALL LIGHT IN REACH.
[2017-10-28 08:40] VITALS: BP 159/79
[2017-10-28 12:58] VITALS: BP 129/60
--- NOTE | 2017-10-28 13:35 | NUR ---
THIS SHIFT, PATIENT IS STILL CONFUSED TO SITUATION AND PLACE, TIME. DOES KNOW HER NAME. O2 ON AT2. MONITOR ON WITH A FLUTTER WITH RATE OF 80. BED ALARM ON. CAR DRAINING.
[2017-10-28 13:59] VITALS: Ht 160 cm; Wt 62.6 kg
[2017-10-28 16:30] VITALS: BP 115/64
--- NOTE | 2017-10-28 20:17 | NUR ---
RESUMED CARE OF PT, LYING IN BED RESPIRATIONS EVEN AND UNLABORED ON 4LPM VIA NC. 80 FLUTTER ON TELEMETRY. RIGHT HAND SALINE LOCKED. CAR TO GRAVITY. CALL LIGHT IN REACH. BED ALARM ON. CALL LIGHT IN REACH. [facility]. SEE NURSE ASSESSMENT.
--- NOTE | 2017-10-28 21:50 | NUR ---
NIGHT MEDS GIVEN, O2 SAT CHECKED 96% ON 2LPM VIA NC. WILL CONTINUE TO MONITOR.
[2017-10-28 22:08] VITALS: BP 117/58
--- NOTE | 2017-10-29 01:53 | NUR ---
LYING IN BED WITH EYES CLOSED, CALL LIGHT IN REACH. WILL CONTINUE WITH PLAN OF CARE.
[2017-10-29 05:06] VITALS: BP 112/56
[2017-10-29 05:08] LABS: BASOPHILS 0 % (0-2); EOSINOPHILS 0 % (0-7); HEMATOCRIT 47.4 % (36.0-48.0); HEMOGLOBIN 14.6 g/dL (12-16); IMMATURE GRANULOCYTES 0.1 % (0-5); LYMPHOCYTES 7.4 % (15-50); MCH 27.4 pg (26.0-34.0); MCHC 30.8 g/dL (31.0-37.0); MCV 88.9 fL (80.0-100.0); MEAN PLATELET VOLUME 9.8 fL (7.4-10.4); MONOCYTES 4.4 % (2-11); NEUTROPHILS 88.1 % (40-80); PLATELET COUNT 191 10x3/uL (130-400); RBC 5.33 10x6/uL (4.00-5.40); RDW 13.8 % (11.5-14.5); WBC 7.7 10x3/uL (4.8-10.8)
[2017-10-29 05:32] LABS: ALBUMIN 2.6 g/dL (3.4-5.0); ALKALINE PHOSPHATASE 76 U/L (46-116); ALT (SGPT) 16 U/L (10-68); CALC OSMOLALITY 283 mosm/kg (275-300); CHLORIDE - SERUM 102 mmol/L (98-107); CREATININE - SERUM 0.7 mg/dL (0.6-1.3); GLUCOSE 142 mg/dL (74-106); MAGNESIUM - SERUM 2.2 mg/dL (1.8-2.4); PHOSPHOROUS 3.3 mg/dL (2.5-4.9); POTASSIUM - SERUM 3.7 mmol/L (3.5-5.1); PROTEIN - SERUM 5.8 g/dL (6.4-8.2); SODIUM 140 mmol/L (136-145); UREA NITROGEN 22 mg/dL (7-18); eGFR NON AFRICAN AMERICAN 85 mL/min (90-120)
--- NOTE | 2017-10-29 06:55 | NUR ---
NO CHANGES FROM PREVIOUS ASSESSMENT, OFF BIPAP AND ON 2LPM VIA NC. SLOW TO WAKE UP THIS AM. WAS UNABLE TO DRINK FROM A STRAW UNTIL FULLY AWAKE. SON AT BEDSIDE. CALL LIGHT IN REACH.
--- NOTE | 2017-10-29 07:30 | NUR ---
RECEIVED PT IN BED EYES CLOSED RESP UNLABORED NAD NOTED
--- NOTE | 2017-10-29 07:30 | NUR ---
BIPAP ON AT THIS TIME NAD NOTED SON AT BEDSIDE
[2017-10-29 10:10] VITALS: BP 126/58
[2017-10-29 13:14] VITALS: BP 163/55
--- NOTE | 2017-10-29 15:05 | NUR ---
Rehab Prescreening Consult recieved and the patient has been visited. She meets criteria for the acute rehab and agrees to participate in the required therapy. She will be accepted when the physician feels she is medically stable for discharge to rehab. Discussed with the CM Maico Rodriguez. Quita Moreno RN Clinical Liaison, Rehab
--- NOTE | 2017-10-29 16:10 | NUR ---
Patient Name: DALTON SOARES Admission Status: ER Accout number: [id number] Admission Date: 10-27-2017 : 1935 Admission Diagnosis: Attending: Puma Healy Current LOS: 2 Anticipated DC Date: 10-29-2017 Planned Disposition: Inpatient Rehab Primary Insurance: MEDICARE A & B Discharge Planning Comments: * Is the patient Alert and Oriented? Yes 0 * How many steps to enter\exit or inside your home? NONE 0 * PCP DR. HEALY 0 * Pharmacy [facility] IN [place], 0 * Preadmission Environment Assisted Living 0 * Facility Name [facility] - [phone] 0 * ADLs Partial Dependent 0 * Partial ADLs (Assistance needed) Medication Management 0 * Equipment Cane Nebulizer Oxygen Rolling Walker 0 * Other Equipment PORTABLE OXYGEN CONCENTRATOR [facility] - [phone] 0 * List name and contact numbers for known caregivers / representatives who currently or will assist patient after discharge: AZ SOARES, SON, 0 * Community resources currently utilized None 0 * Please name any agencies selected above. NONE 0 * Additional services required to return to the preadmission environment? Yes * Can the patient safely return to the preadmission environment? Yes 0 * Has this patient been hospitalized within the prior 30 days at any hospital? Yes 0 CM MET WITH PT IN ROOM TO DISCUSS DISCHARGE PLANNING AND NEEDS. PT REPORTS LIVING AT [facility], REQUIRES ASSISTANCE WITH MEDICATION MANAGEMENT. SHE ALSO HAS MEAL SERVICE AND TRANSPORTATION. PT HAS ALL NEEDED MEDICAL EQUIPMENT FROM [facility] AND NO OUTSIDE SERVICES ASSISTING IN THE HOME. CM DISCUSSED AVAILABILITY OF HOME HEALTH, REHAB SERVICES AND MEDICAL EQUIPMENT. PT WOULD LIKE REHAB AT [facility] SINCE DR. HEALY FEELS IT TO BE NECESSARY; PT REPORTS GOAL TO RETURN HOME TO HER ASSISTED LIVING APARTMENT, REPORTS HER SON WILL PICK HER UP FOR DISCHARGE HOME. CM SPOKE TO PT'S SON, DONOVAN SOARES IN ROOM WHO IS ALSO IN AGREEMENT WITH PT GOING TO INPATIENT REHAB AT [facility]. DONOVAN REPORTS HE WENT TO PT'S APARTMENT AND FOUND THAT SEVERAL ELECTRIC SOCKETS WERE NOT OPERATING IN PT'S ROOM AND THAT IS WHERE PT'S PORTABLE CONCENTRATOR HAS BEEN PLUGGED IN. DONOVAN HAS TALKED TO BUILDING ADMINSTRATION TO ADDRESS THE ISSUE AND PLUGGED PT'S CONCENTRATOR INTO A WORKING OUTLET TO CHECK MACHINES CHARGING AND OPERATION. PT DENIES DISCHARGE NEEDS. CM SPOKE TO GLADIS OF INPATIENT REHAB, THEY PLAN TO ACCEPT PT TODAY FOR REHAB. BEDSIDE NURSE NOTIFIED AND CM REQUESTED SHE NOTIFY THE DOCTOR TO SEE IF PT IS READY TO DISCHARGE TO REHAB TODAY. BEDSIDE NURSE NOTIFIED CM THAT DR. HUMPHREY IS DISCHARGING PT FOR DR. HEALY. CM CALLED AND NOTIFIED MARIA G IN INPATIENT REHAB. [facility] INPATIENT REHAB TO CONTACT [facility] 2 NURSE WITH ROOM NUMBER WHEN READY TO ACCEPT PT AND NURSE REPORT. Habilitation Training Specialist: Salvador Rodriguez
[2017-10-29] MEDS ORDERED: DIAMOX IV (16:54)
[2017-10-29] MEDS ORDERED: ZOFRAN4 MG PO (16:56)
[2017-10-29] MEDS ORDERED: PROTONIX40 MG PO (16:56)
[2017-10-29 17:14] VITALS: BP 138/58
--- NOTE | 2017-10-29 18:00 | NUR ---
REPORT CALLED TO REHAB AND GIVEN TO VIDHI URBINA
== END 2017-10-29 19:23 | DRG 189 ==
LOC: D.ER 10:16 → D.M2 13:08
PROVIDERS: Emergency Medicine; Internal Medicine Pulmonary Disease; ADMIT Family Medicine
PROC: 5A09457 Assistance with Respiratory Ventilation, 24-96 Consecutive Hours, Continuous Positive Airway Pressure (ICD-10-PCS; principal; 2017-10-27)
DX: J96.22 Acute and chronic respiratory failure with hypercapnia (principal); G93.40 Encephalopathy, unspecified; M35.1 Other overlap syndromes; J44.1 Chronic obstructive pulmonary disease with (acute) exacerbation; I10 Essential (primary) hypertension; F41.9 Anxiety disorder, unspecified; F32.9 Major depressive disorder, single episode, unspecified; E03.9 Hypothyroidism, unspecified; E78.5 Hyperlipidemia, unspecified; I48.91 Unspecified atrial fibrillation; Z95.0 Presence of cardiac pacemaker; Z87.891 Personal history of nicotine dependence; J45.909 Unspecified asthma, uncomplicated

== ENCOUNTER 2017-10-29 16:54 | Inpatient (IN) | payer MEDICARE, BC ==
[~2017-10-29] VITALS: Ht 160 cm; Wt 62.6 kg
[~2017-10-29 16:54] MED LIST changes: +DIAMOX IV
[2017-10-29] MEDS ORDERED: PROTONIX40 MG PO (16:56)
[2017-10-29] MEDS ORDERED: ZOFRAN4 MG PO (16:56)
--- NOTE | 2017-10-29 19:30 | NUR ---
RECEIVED PATIENT TO BED 1108B VIA BED FROM MED 2 UNITS, ACCOMPANIED BY MED 2 RENEWALS SPECIALIST'S AND PATIENT'S SON, WHO LEFT ALMOST IMMEDIATELY UPON PATIENT'S ARRIVAL. PATIENT DENIES CURRENT NEEDS.
[2017-10-29 19:56] VITALS: BMI 24.5
--- NOTE | 2017-10-29 21:10 | NUR ---
RESTING QUIETLY, EYES CLOSED. NO DISTRESS EVIDENT.
--- NOTE | 2017-10-29 23:15 | NUR ---
ADMISSION ASSESSMENT AND HS MEDS COMPLETE. ADMISSION HISTORY ALSO COMPLETE AND ADMISSION DOCUMENTS ARE SIGNED. PATIENT DENIES NEEDS.
--- NOTE | 2017-10-30 00:30 | NUR ---
PATIENT RESTING QUIETLY IN BED, EYES CLOSED. NOW ON BIPAP PER R/T.
--- NOTE | 2017-10-30 02:10 | NUR ---
RESTING QUIETLY IN BED, EYES CLOSED.
--- NOTE | 2017-10-30 04:10 | NUR ---
CAUGHT PATIENT TRYING TO REMOVED BIPAP MASK. GAVE HER A DRINK OF WATER AND REPLACED MASK AND READJUSTED ITS POSITION. EMPTIED 750ML DARK PINK URINE FROM CAR CATH BAG. PATIENT DISORIENTED TO TIME OF DAY.
--- NOTE | 2017-10-30 05:40 | NUR ---
GAVE PATIENT SCHEDULED PO MEDS AND FLUSHED HER RIGHT HAND S/L. GAVE HER A A LONG DRINK OF WATER WITH HER MEDS AND THEN RESUMED BIPAP THERAPY.
[2017-10-30 07:16] LABS: BASOPHILS 0 % (0-2); EOSINOPHILS 0 % (0-7); HEMATOCRIT 46.1 % (36.0-48.0); HEMOGLOBIN 14.5 g/dL (12-16); IMMATURE GRANULOCYTES 0.3 % (0-5); LYMPHOCYTES 7.1 % (15-50); MCH 27.1 pg (26.0-34.0); MCHC 31.5 g/dL (31.0-37.0); MEAN PLATELET VOLUME 9.8 fL (7.4-10.4); MONOCYTES 5.1 % (2-11); NEUTROPHILS 87.5 % (40-80); PLATELET COUNT 214 10x3/uL (130-400); RBC 5.36 10x6/uL (4.00-5.40); RDW 14.2 % (11.5-14.5)
[2017-10-30 07:26] LABS: ANION GAP 11.1 mmol/L (8-16); CALCIUM 9.9 mg/dL (8.5-10.1); CARBON DIOXIDE 33.3 mmol/L (21.0-32.0); POTASSIUM - SERUM 3.4 mmol/L (3.5-5.1)
[2017-10-30 07:27] LABS: CREATININE - SERUM 0.9 mg/dL (0.6-1.3)
--- NOTE | 2017-10-30 08:58 | NUR ---
PT RESTING IN BED WITH EYES OPEN CALL LIGHT IN REACH WILL MONITER
[2017-10-30 09:47] VITALS: BP 129/69
[2017-10-30 12:28] VITALS: BMI 24.4
--- NOTE | 2017-10-30 17:34 | NUR ---
PT RESTING IN BED WITH EYES OPEN CALL LIGHT IN REACH NO PROBLEMS WILL MONITER
--- NOTE | 2017-10-30 18:39 | NUR ---
RESTING QUIETLY IN BED. CALL LIGHT IN REACH. BED IN LOWEST POSITION.
[2017-10-30 19:12] VITALS: BP 116/54
--- NOTE | 2017-10-30 19:43 | NUR ---
RECIEVED UP IN BED WITH EYES CLOSED. NO S/S OF DISTRESS OBSERVED. CALL LIGHT AND OVERBED TABLE IN REACH.
--- NOTE | 2017-10-31 01:01 | NUR ---
RESTING IN BED WITH EYES CLOSED. BIPAP IN PLACE AND FUNCTIONAL. F/C INTACT WITH CLEAR STRAW COLOR URINE DRAINING TO BSD SYSTEM. CALL LIGHT AND OVERBED TABLE IN REACH.
--- NOTE | 2017-10-31 02:31 | NUR ---
RESTING IN BED WITH EYES CLOSED. NO S/S OF DISTRESS OBSERVED. F/C PATENT WITH CLEAR STRAW COLOR URINE DRAINING TO BEDSIDE DRAINAGE SYSTEM. HOB ELEVATED AND CPAP IN PLACE AND FUNCTIONAL. CALL LIGHHT AND OVERBED TABLE IN REACH.
--- NOTE | 2017-10-31 08:20 | NUR ---
PT AM MEDS ADMINSITERED. PT DENIES NEEDS. WCTM.
[2017-10-31 08:42] VITALS: BP 126/54
--- NOTE | 2017-10-31 18:40 | NUR ---
PT CURRENTLY RESTING IN BED, DENIES NEEDS. WCTM.
[2017-10-31 19:11] VITALS: BP 117/73
--- NOTE | 2017-10-31 19:11 | NUR ---
RECIEVED LAYING IN BED WITH EYES CLOSED. NO S/S OF DISTRESS OBSERVED. HOB ELEVATED AND O2 @ 2 LITERSP[address] N/C IN PLACE. F/C PATENT WITH CLEAR YELLOW URINE DRAINING TO BSD SYSTEM. CALL LIGHT AND OVER BED TABLE IN REACH.
--- NOTE | 2017-11-01 00:31 | NUR ---
RESTING IN BED WITH EYES CLOSED. NO S/S OF DISTRESS OBSERVED. BIPAP IN PLACE AND FUNCTIONING PROPERLY. CALL LIGHT IN REACH.
--- NOTE | 2017-11-01 02:43 | NUR ---
RESTING IN BED WITH EYES CLOSED. NO S/S OF DISTRESS OBSERVED.
--- NOTE | 2017-11-01 02:45 | NUR ---
RESTING IN BED WITH EYES CLOSED. NO S/S OF DISTRESS OBSERVED.
[2017-11-01 07:20] LABS: BASOPHILS 0.1 % (0-2); EOSINOPHILS 0 % (0-7); HEMOGLOBIN 14.6 g/dL (12-16); IMMATURE GRANULOCYTES 0.6 % (0-5); LYMPHOCYTES 6.9 % (15-50); MCH 27.2 pg (26.0-34.0); MCHC 31.1 g/dL (31.0-37.0); MCV 87.7 fL (80.0-100.0); MEAN PLATELET VOLUME 10.1 fL (7.4-10.4); MONOCYTES 7.1 % (2-11); NEUTROPHILS 85.3 % (40-80); PLATELET COUNT 227 10x3/uL (130-400); RBC 5.36 10x6/uL (4.00-5.40); RDW 14.2 % (11.5-14.5); WBC 12.3 10x3/uL (4.8-10.8)
[2017-11-01 07:32] LABS: ANION GAP 9.6 mmol/L (8-16); CALCIUM 9.6 mg/dL (8.5-10.1); CARBON DIOXIDE 31.4 mmol/L (21.0-32.0); CREATININE - SERUM 0.8 mg/dL (0.6-1.3)
--- NOTE | 2017-11-01 07:53 | NUR ---
SITTING UP EATING BREAKFAST. CALL LIGHT IN REACH. BED IN LOWEST POSITION.
[2017-11-01 08:00] VITALS: BP 117/59
--- NOTE | 2017-11-01 08:00 | NUR ---
PATIENT ALERT. SITTING UP IN BED TO EAT BREAKFAST. CARTONS OPENED FOR PATIENT. OXYGEN ON AT 2L PER N/C. BI PAP OFF. BED ALARM ON. CALL LIGHT WITHIN REACH. USING CALL LIGHT FOR NEEDS.
--- NOTE | 2017-11-01 10:24 | NUR ---
PATIENT RESTING IN BED. EYES SHUT. BREATHING STEADY. OXYGEN ON AT 2L PER N/C.
--- NOTE | 2017-11-01 13:15 | NUR ---
SALINE LOCK REMOVED. NO IV MEDICATIONS LAB WNL
--- NOTE | 2017-11-01 17:30 | NUR ---
PATIENT HELPED INTO BATHROOM. STAND BY ASST FROM WHEELCHAIR TO TOILET. PATIENT ABLE TO DO OWN RYAN CARE.
--- NOTE | 2017-11-01 19:15 | NUR ---
PT. IN BED WITH HOB UP FOR COMFORT WITH EYES CLOSED AND RESP. EVEN. PT. AWAKES EASILY FOR ASSESSMENT NO VOICED NEEDS. CAR TO BSD WITH VISIBLE SMALL RED CLOTS BUT IS DRAINING FREELY WITHOUT ANY DISCOMFORT TO PT. CALL LIGHT WITHIN REACH AND HER O2 VIA N/C @ 2L/MIN WITHOUT ANY S/S DISTRESS.
[2017-11-01 19:45] VITALS: BP 119/53
--- NOTE | 2017-11-01 23:10 | NUR ---
PT. IN BED LYING ON HER RIGHT SIDE WITH PILLOW AT BACK FOR SUPPORT. EYES CLOSED AND RESP. EVEN. CAR TO BSD WITHOUT PROBLEMS. CALL LIGHT WITHIN REACH.
--- NOTE | 2017-11-02 03:08 | NUR ---
PT. IN BED LYING ON HER RIGHT SIDE WITH EYES CLOSED AND RESP. EVEN. CAR TO BSD WITHOUT ANY PROBLEMS. CALL LIGHT WITHIN REACH.
--- NOTE | 2017-11-02 08:02 | NUR ---
PT RESTING IN BED WITH EYES OPEN CALL LIGHT IN REACH WILL MONITER
--- NOTE | 2017-11-02 08:25 | NUR ---
EATING BREAKFAST IN BED.CL IN REACH.DENIES NEEDS.
[2017-11-02 08:41] VITALS: BP 107/52
--- NOTE | 2017-11-02 10:56 | NUR ---
Nutrition Follow Up: Pt was asleep at the time of RD visit. Interview deferred. Pt is eating 51% meal avg on a regular [facility] soft diet. +BM 11/01/17. Meds and labs reviewed. Rec continue regular diet with LASERIST recs for consistencies. RD following.
--- NOTE | 2017-11-02 11:58 | NUR ---
PATIENT ADMITTED TO REHAB FROM ACUTE FLOOR. PATIENT LIVES AT [facility]. DR. HEALY IS PATIENT PCP. DME AT HOME THAT IS PROVIDED BY [facility]IENT. NEBULIZER, O2, AND A ROLLING WALKER. DISCHARGE PLANS ARE FOR PATIENT TO RETURN HOME AND AND HER SON WILL TRANSPORT PATIENT HOME AT DISCHARGE. WILL CONTINUE TO FOLLOW WITH PATIENT.
--- NOTE | 2017-11-02 13:34 | NUR ---
PT UP IN WHEELCHAIR UP IN ROOM TOLERATING WELL WILL MONITER
--- NOTE | 2017-11-02 17:33 | NUR ---
PT RESTING IN BED WITH EYES OPEN CALL LIGHT IN REACH NO PROBLEMS WILL MONITER
[2017-11-02 19:30] VITALS: BP 126/60
--- NOTE | 2017-11-02 19:35 | NUR ---
BEDSIDE SHIFT REPORT COMPLETE. PATIENT RESTING QUIETLY IN BED, O2 @ 2L PER N/C. CAR CATH REMAINS PATIENT TO BSD BAG WITH DARK YELLOW URINE.
--- NOTE | 2017-11-02 21:25 | NUR ---
ASSESSMENT AND HS MEDS COMPLETE. DENIES NEEDS. CONTINUES ON O2 PER N/C @ 2L FLOW. R/T TO EMPLACE BIPAP ON NEXT ROUNDS.
--- NOTE | 2017-11-02 22:15 | NUR ---
RESTING QUIETLY IN BED, EYES CLOSED.
--- NOTE | 2017-11-02 23:35 | NUR ---
CLAMPED CAR CATHETER AT CONNECTION FOR LATER COLLECTION OF UA SAMPLE. PATIENT DENIES NEEDS.
--- NOTE | 2017-11-03 00:10 | NUR ---
RESTING QUIETLY IN BED, EYES CLOSED. R/T JUST RECENTLY EMPLACED HER BIPAP.
[2017-11-03 01:42] LABS: APPEARANCE HAZY (CLEAR); BILIRUBIN NEGATIVE (NEGATIVE); COLOR YELLOW (YELLOW); GLUCOSE NEGATIVE (NEGATIVE); KETONE NEGATIVE (NEGATIVE); NITRITE NEGATIVE (NEGATIVE); PROTEIN NEGATIVE (NEGATIVE); SPECIFIC GRAVITY 1.015 (1.005-1.020); UROBILINOGEN NORMAL (NORMAL)
[2017-11-03 01:44] LABS: BACTERIA MODERATE /hpf (NONE SEEN); EPITHELIAL CELLS 0-5 /hpf (0-5); WHITE CELLS - URINE 0-5 /hpf (0-5); YEAST <1+ /hpf (NONE SEEN)
--- NOTE | 2017-11-03 02:00 | NUR ---
IN BED, EYES CLOSED. R/T WAS JUST HERE CHECKING ON PATIENT AND HER BIPAP.
--- NOTE | 2017-11-03 03:10 | NUR ---
PATIENT SET OFF BIPAP ALARM WHEN SHE PULLED OFF MASK AND WAS HOLDING IT AWAY FROM HER FACE. PATIENT IS ADAMANT AND REFUSED FURTHER USE OF BIPAP. BIPAP MASK WAS REMOVED AND PLACED PATIENT BACK ON O2 @ 2L PER N/C.
--- NOTE | 2017-11-03 04:20 | NUR ---
RESTING QUIETLY. O2 PER N/C @ 2L FLOW. HOB UP 30 DEGREES. EMPTIED 1050 ML HOWARD URINE FROM CAR BEDSIDE DRAINAGE BAG.
--- NOTE | 2017-11-03 05:45 | NUR ---
GAVE PATIENT SCHEDULED PO MEDS. DENIES NEEDS.
[2017-11-03 06:52] LABS: BASOPHILS 0.1 % (0-2); EOSINOPHILS 0 % (0-7); HEMATOCRIT 46.8 % (36.0-48.0); HEMOGLOBIN 14.3 g/dL (12-16); IMMATURE GRANULOCYTES 0.5 % (0-5); LYMPHOCYTES 4.4 % (15-50); MCH 26.9 pg (26.0-34.0); MCHC 30.6 g/dL (31.0-37.0); MCV 88.1 fL (80.0-100.0); MEAN PLATELET VOLUME 9.7 fL (7.4-10.4); MONOCYTES 4.4 % (2-11); NEUTROPHILS 90.6 % (40-80); PLATELET COUNT 245 10x3/uL (130-400); RBC 5.31 10x6/uL (4.00-5.40); RDW 14.2 % (11.5-14.5)
[2017-11-03 06:55] LABS: WBC 16.1 10x3/uL (4.8-10.8)
[2017-11-03 07:11] LABS: ANION GAP 10.3 mmol/L (8-16); CALCIUM 9.5 mg/dL (8.5-10.1); CARBON DIOXIDE 28.7 mmol/L (21.0-32.0); CREATININE - SERUM 0.8 mg/dL (0.6-1.3)
--- NOTE | 2017-11-03 07:35 | NUR ---
SITTING UP IN BED WATCHING TV. ALERT AND ORIENTED X3. DENIES ANY NEEDS OR PAIN. CONTINUES ON O2 AT 2L VIA NC. NO S/SX OF RESPIRATORY DISTRESS NOTED. CALL LIGHT AND WATER WITHIN REACH, BED ALARM ON, BED IN LOWEST POSITION, SR X2. WILL CONTINUE TO MONITOR
[2017-11-03 08:46] VITALS: BP 98/56
--- NOTE | 2017-11-03 12:17 | NUR ---
SITTING UP IN W/C EATING LUNCH. DENIES ANY NEEDS OR PAIN. NO S/SX OF RESPIRATORY DISTRESS NOTED. CALL LIGHT AND WATER WITHIN REACH, W/C BRAKES LOCKED AND BOX ALARM ATTACHED. WILL CONTINUE TO MONITOR
--- NOTE | 2017-11-03 12:23 | RHP ---
PATIENT: DALTON SOARES MEDICAL RECORD: [id number] ACCOUNT: [id number] LOCATION:[facility]8 : 34 ADMISSION DATE: 10/29/17 REHABILITATION HISTORY AND PHYSICAL EXAMINATION POST ADMISSION PHYSICIAN EXAMINATION DATE OF ADMISSION: 10/29/2017. ADMITTING DIAGNOSIS: Encephalopathy. 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 She was admitted on 10/27 because of acute mental status changes, she was recently hospitalized for COPD and discharged home on 10/25. Her ABG showed a pH of 7.3, pO2 of 102, pCO2 of 132, and sat of 98%. She was having increased shortness of breath, wheezing, and dyspnea even with minimal activity. She was in mild distress, decreased breath sounds, wheezes, and rhonchi. Chest x-ray showed improvement of bilateral lower lobe disease and small pleural effusions. These findings were suggestive of improving pneumonia and mild congestive heart failure. She was placed on BiPAP and had improvement in her neurological status. PAST MEDICAL HISTORY: Significant for COPD, O2 dependent; asthma; hypothyroidism; hypertension; pacemaker placement and also an internal defibrillator; anxiety; and depression. She lives in an apartment in [facility]. She was O2 dependent on 2 liters prior to this. She was independent with ADLs and mobility. Currently, she is mod to max assist for ADLs and mobility. She is on O2 4 liters continuously. She has a Vasquez catheter for accurate I's and O's. She is alert and oriented, but somewhat confused at times. She tires easily and weak in all extremities and a speech therapy eval showed oropharyngeal dysphagia and recommended mechanical soft diet, thin liquids, speech therapy to follow up for safety, diet tolerance, aspiration precautions, and upgrade. She would definitely need inpatient rehab to get back to her prior level of functioning. COMORBIDITIES: Include hypothyroidism, hypertension, COPD, respiratory failure, dysphagia, recent tracheobronchitis, hypercapnia, pneumonia, dyspnea, atrial flutter, weakness, functional decline, decreased range of motion, hyperlipidemia, anxiety, depression. PAST MEDICAL HISTORY: Significant for weakness. She got a history of cataracts, thyroid problems, hypertension, COPD, asthma, depression, and anxiety. PAST SURGICAL HISTORY: Includes gallbladder surgery, cataract surgery, pacemaker and defibrillator placement, hip fracture. ALLERGIES: PENICILLIN. CURRENT MEDICATIONS: Include Diamox 250 mg b.i.d. She is on Paxil 30 mg daily, Protonix 40 mg daily, Synthroid 100 mcg daily, Breo 1 puff daily. She is on doxycycline 100 mg daily. She is on Norvasc 2.5 mg daily, prednisone of tapering dose, MiraLax 17 grams in 8 ounces of water daily. She is on Zofran 4 mg q.4 hours p.r.n., DuoNeb updrafts, Benadryl 25 mg t.i.d. p.r.n. itching, Pradaxa 150 mg b.i.d., captopril 25 mg b.i.d., Lipitor 10 mg at bedtime, Brovana HISTORY AND PHYSICAL [id number] FANY,DALTON 15 mcg b.i.d., and Tylenol p.r.n. HABITS: No current alcohol or tobacco use. FAMILY HISTORY: Noncontributory. SOCIAL HISTORY: The patient hopes to return back to [place], get back to her prior level of functioning. REVIEW OF SYSTEMS: GENERAL: Does complain of weakness. HEENT: Does complain of cold, cough, and congestion. CARDIOVASCULAR: Denies any chest pain. LUNGS: Does complain of some shortness of breath. PHYSICAL EXAMINATION: VITAL SIGNS: Stable, afebrile. GENERAL: Elderly female in no acute distress, alert upon exam. HEENT: Normocephalic and atraumatic. Mucosa moist. NECK: Supple. No lymphadenopathy. LUNGS: Coarse breath sounds bilaterally. CARDIOVASCULAR: Regular rate and rhythm. ABDOMEN: Benign. EXTREMITIES: No clubbing, cyanosis, or edema. NEUROLOGIC: She does have some weakness. LABORATORY DATA: Her white count is 10.0, H&H of 14 and 46, and platelet count was noted to be 214. Sodium is 145, potassium 3.4, BUN and creatinine of 27 and 0.9, and blood sugar is noted to be 141. ASSESSMENT: This is an 82-year-old female patient admitted to rehab with a working diagnosis of encephalopathy caused by hypercapnia. The patient has potential to make improvement. We instituted the following multidisciplinary therapies to include, but not limited to physical, occupational, respiratory, speech, nutritional services, prosthetics, and orthotics. Given her complex condition and risk for more complications, rehabilitation services cannot be provided at a low level of care such as a shelter facility. PLAN: 1. Admit to [facility] rehab for intensive inpatient therapy to include the following disciplines: A. Physical therapy to improve gait, all transfer skills and bed mobility to a modified independent level. B. Occupational therapy to improve activities of daily level to a modified independent level. C. Case management to assist with discharge planning and placement options. D. Nutrition to assist with nutritional needs. E. Rehabilitation nursing to assist medical conditions and to assist with any type of bowel or bladder management. 2. The patient's current medication and medical care will be continued. 3. The patient will be placed on standard fall precautions. 4. The patient's estimated length of stay is approximately 7-10 days. 5. Discuss this patient during care team staff meeting next week. 6. We are going to change some of her IV medications over to oral medications making easy therapy and should not change her current status of health. HISTORY AND PHYSICAL [id number] DALTON SOARES TRANSINT:[id number] Voice Confirmation ID: [id number] DOCUMENT ID: [id number] JOSE notes whether there has been none or any medical/functional change since admission: - No change since pre-admission screen. JOSE attests patient continues to be appropriate for IRF: - Continues to be appropriate. ANDRIA MARTINEZ MD at 1223 CC: [id number] DICTATION DATE: 10/30/17 1208 CHIEF CONTROLLER: 10/30/17 1324 ADM IN [facility] [address] [place] [address]
--- NOTE | 2017-11-03 16:58 | NUR ---
SITTING UP IN W/C WATCHING TV. DENIES ANY NEEDS OR PAIN. NO S/SX OF ACUTE DISTRESS NOTED. CALL LIGHT AND PERSONAL ITEMS WITHIN REACH, W/C BRAKES LOCKED AND ALARM ON. WILL CONTINUE TO MONITOR
--- NOTE | 2017-11-03 19:00 | NUR ---
PATIENT IN BED, AWAKE. REMOVED HER DINNER TRAY SHE SAYS SHE IS DONE WITH IT. ASKED HER TO COMPLETE HER MENU AND I WILL BE BY TO COLLECT IT LATER. DENIES NEEDS.
[2017-11-03 21:50] VITALS: BP 118/50
--- NOTE | 2017-11-03 21:50 | NUR ---
ASSESSMENT AND HS MEDS COMPLETE. DENIES NEEDS. WILL NOT WEAR BIPAP WITH CURRENT TYPE OF MASK. MAYRA FROM R/T WORKED WITH PATIENT EARLIER TO READJUST THE CURRENT MASK WHICH SHE HAS HAD FROM THE START, BUT PATIENT WAS NOT SATISFIED. PATIENT WAS TOLD THE HOSPITAL STOCKS ONLY THE CURRENT MASK IN 2 SIZES AND THIS IS THE ONLY ONE THAT WILL FIT HER FACE, THE OTHER SIZE BEING TOO LARGE AND THEREFORE WOULD NOT SEAL.
--- NOTE | 2017-11-03 22:20 | NUR ---
RESTING QUIETLY, EYES CLOSED.
--- NOTE | 2017-11-03 23:50 | NUR ---
IN BED, EYES CLOSED. NO DISTRESS EVIDENT.
--- NOTE | 2017-11-04 02:15 | NUR ---
IN BED, EYES CLOSED. NO EVIDENT DISTRESS.
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
[2017-11-04 08:07] VITALS: BP 133/63
--- NOTE | 2017-11-04 12:00 | NUR ---
PT UP IN WHEELCHAIR EATING LUNCH CALL LIGHT IN REACH NO PROBLEMS WILL MONITER
--- NOTE | 2017-11-04 13:07 | NUR ---
PT RESTING IN BED WITH EYES OPEN CALL LIGHT IN REACH NO PROBLEM WILL MONITER
--- NOTE | 2017-11-04 16:26 | NUR ---
care team meeting: PATIENT PROGRESSING IN THERAPY AND TENATIVE DISCHARGE DATE IS 11/12/17 BACK TO HER HOME AT [facility]. WILL CONTINUE TO FOLLOW WITH PATIENT
--- NOTE | 2017-11-04 19:05 | NUR ---
RESTING QUIETLY IN BED, EYES CLOSED.
[2017-11-04 21:10] VITALS: BP 113/52
--- NOTE | 2017-11-04 21:10 | NUR ---
AWOKE PATIENT FOR ASSESSMENT AND HS MEDS, WHICH ARE NOW COMPLETE. RESUMED BIPAP WHICH HAD RECENTLY BEEN EMPLACED BY R/T.
--- NOTE | 2017-11-04 22:20 | NUR ---
RESTING QUIETLY IN BED, EYES CLOSED.
--- NOTE | 2017-11-05 00:10 | NUR ---
BIPAP ALARMING. FOUND PATIENT WITH MASK PULLED TO LEFT SIDE OF NOSE. TRIED TO REPOSITION MASK BUT PATIENT SAID, "I'M DONE WITH THIS." REMINDED HER THAT HER MASK WAS CHANGED TONIGHT BY R/T, THAT SHE NEEDED TO ACCOMODATE TO THIS BIPAP, OTHERWISE SHE WOULD HAVE DIFFICULTY WITH THE TRILOGY UNIT PLANNED FOR HER AFTER DISCHARGE. BUT PATIENT WANTED TO COMPLAIN ABOUT THE DISCOMFORT TO HER NOSE. TOLD HER THAT SHE EITHER WEARS IT OR NOT THERE IS NO MIDDLE GROUND. GAVE HER A DRINK OF WATER AND THEN SHE RELENTED AND ALLOWED REPLACEMENT OF THE MASK. BIPAP THERAPY WAS RESUMED.
--- NOTE | 2017-11-05 02:10 | NUR ---
RESTING IN BED, EYES CLOSED. BIPAP MASK IN PLACE. APPEARS COMFORTABLE.
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
--- NOTE | 2017-11-05 06:00 | NUR ---
REMOVED BIPAP MASK AND CHANGED PATIENT TO O2 PER N/C @ 2L FLOW. GAVE HER SCHEDULED PO MEDS. DENIES CURRENT NEEDS.
[2017-11-05 07:24] LABS: ANION GAP 8.2 mmol/L (8-16); CALCIUM 9.6 mg/dL (8.5-10.1); CARBON DIOXIDE 31.9 mmol/L (21.0-32.0); CREATININE - SERUM 0.8 mg/dL (0.6-1.3); POTASSIUM - SERUM 4.1 mmol/L (3.5-5.1)
[2017-11-05 07:48] LABS: HEMATOCRIT 47.7 % (36.0-48.0); HEMOGLOBIN 14.9 g/dL (12-16); MCH 27.3 pg (26.0-34.0); MCHC 31.2 g/dL (31.0-37.0); MCV 87.5 fL (80.0-100.0); MEAN PLATELET VOLUME 9.8 fL (7.4-10.4); PLATELET COUNT 253 10x3/uL (130-400); RBC 5.45 10x6/uL (4.00-5.40); RDW 14.5 % (11.5-14.5); WBC 22.4 10x3/uL (4.8-10.8)
--- NOTE | 2017-11-05 08:27 | NUR ---
SITTING UP EATING BREAKFAST. DENIES NEEDS.
[2017-11-05 08:36] LABS: EOSINOPHILS 1 % (0-7); LYMPHOCYTES 1 % (15-50); MONOCYTES 1 % (2-11); NEUTROPHILS 90 % (40-80); PLATELET ESTIMATE NORMAL
--- NOTE | 2017-11-05 12:45 | NUR ---
PT WENT TO RESTROOM HAD CLOTS COME AROUND CAR CATH DR LOGAN CALLED ORDERED TO BLADDER SCAN PT IF MORE THAN 300 FLUSH CATH BLADDER SCAN SHOWED 31CC WILL CONTINUE TO MONITER
[2017-11-05 14:52] VITALS: Ht 160 cm; Wt 62.6 kg
--- NOTE | 2017-11-05 16:31 | NUR ---
CAR CATH REMOVED TIP INTACT PER DR LOGAN ORDERS PT TOLERATED WELL WILL MONITER
--- NOTE | 2017-11-05 17:05 | NUR ---
PT ASSISTED TO BATHROOM PT VOIDED PINK URINE NO COMPLICATIONS WILL CONTINUE TO MONITER
--- NOTE | 2017-11-05 19:15 | NUR ---
PT. SITTING UP IN W/C AND WATCHING TV. ASSESSMENT COMPLETED. DISCUSSED PT'S CONCERN ABOUT STILL PASSING SOME BLOOD IN HER URINE AND SHE IS STILL ON PRADAXA. INFORMED PT. THAT THE UROLOGIST AND DR. MARTINEZ BOTH HAVE EVALUATED HER SITUATION AND MD'S WANT HER TO CONTINUE TAKING THE PRADAXA DUE TO THE INCREASED RISK OF A CVA IF SHE WERE TO STOP IT. PT. STATED SHE UNDERSTOOD. CALL LIGHT WITHIN REACH AND PT. WILL CALL WHEN SHE IS READY TO GO BACK TO BED.
[2017-11-05 19:55] VITALS: BP 123/61
--- NOTE | 2017-11-05 23:10 | NUR ---
PT. IN BED WITH HOB UP FOR COMFORT AND IS WEARING HER BIPAP MASK. EYES CLOSED AND RESP. EVEN. CALL LIGHT WITHIN REACH.
--- NOTE | 2017-11-06 02:59 | NUR ---
PT. REQUESTING TO HAVE BI-PAP EQUIPMENT FROM [facility] REMOVED THE MASK IS CAUSING UNDUE PRESSURE ON THE BRIDGE OF HER NOSE. BI-PAP MASK REMOVED AND EQUIPMENT TURNED OFF AT PT'S REQUEST. SUPPLIMENTAL O2 APPLIED VIA N/C AT 2L/MIN. CALL LIGHT WITHIN REACH.
--- NOTE | 2017-11-06 08:27 | NUR ---
ASSITED PT TO SIDE OF BED FOR BREAKFAST, NO COMPLAINTS OF DISCOMFORT OR PAIN, ASSISTED PT TO RESTROOM AFTER, PT ATE 50% OF BREAKFAST. BED IN LOW POSITION, CL IN REACH. NO OTHER NEEDS AT THIS TIME. CONTINUE WITH PLAN OF CARE
[2017-11-06 08:51] VITALS: BP 117/56
--- NOTE | 2017-11-06 14:57 | NUR ---
GOT PT UP FOR SHOWER AND LINEN CHANGE, PT BED SOAKED IN URINE AND BLOOD, WHEN IN RESTROOM, PT NEEDED TO USE RESTROOM AND BEFORE SITTING DOWN PT STARTED TO URINATE AND BLOOD WAS IN URINE. TOILET WAS FULL OF DARK RED BLOOD, HAD RN SIDDHARTH COME AND LOOK WELL. PT STATED HAD CATHETER REMOVED YESTERDAY AND STILL BLEEDING. DR MARTINEZ AND UROLOGIST AWARE, WILL PASS OFF IN [place] PT IS STILL BLEEDING WITH URINATION. ADVISED PT TO CALL WHEN NEEDING ASSISTANCE TO RESTROOM, STATED SHE HARDLY EVER KNOWS WHEN SHE HAS TO GO, WILL CONTINUE TO CHECK ON PT MORE OFTEN
[2017-11-06 15:47] VITALS: BP 124/48
--- NOTE | 2017-11-06 16:00 | NUR ---
AWAKEN WITH YELLING HELP,COUGHING AND SPITTING UP BLOOD.BRIGHT RED BLOOD
[2017-11-06 16:29] LABS: BASOPHILS 0 % (0-2); EOSINOPHILS 0 % (0-7); HEMOGLOBIN 15.1 g/dL (12-16); IMMATURE GRANULOCYTES 0.6 % (0-5); LYMPHOCYTES 7.6 % (15-50); MCH 27.6 pg (26.0-34.0); MCHC 31.5 g/dL (31.0-37.0); MCV 87.6 fL (80.0-100.0); MEAN PLATELET VOLUME 9.7 fL (7.4-10.4); MONOCYTES 3.4 % (2-11); NEUTROPHILS 88.4 % (40-80); PLATELET COUNT 239 10x3/uL (130-400); RBC 5.48 10x6/uL (4.00-5.40); RDW 14.5 % (11.5-14.5); WBC 21.7 10x3/uL (4.8-10.8)
[2017-11-06 16:34] LABS: INR 1.26 (0.85-1.17); PROTIME 15.4 SECONDS (11.6-15.0)
--- NOTE | 2017-11-06 16:36 | NUR ---
PT CALLED OUT FOR HELP AT 1545. UPON ENTERING ROOM, PT IS COUGHING UP BLOOD AND HAS A NOSEBLEED. RAPID CALLED ON PT. PT STATS ARE GOOD V/S STABLE, ANA FROM ICU AND DREA CAME. LABS , CXR ORDERED, HOLD ON PRADAXA, DR MARTINEZ CALLED, CONTINUE TO MONITOR PATIENT CALL FAMILY
--- NOTE | 2017-11-06 16:50 | NUR ---
PATIENTS SON, [place], CALLED IN REGARDS TO RAPID RESPONSE.
--- NOTE | 2017-11-06 17:33 | NUR ---
WILL HOLD PRAXBIND MED FOR NOW.BLEEDING HAS APPEARED TO HAVE STOPPED FOR NOW.VITAL SIGNS STABLE,CXR FINE,LAB WORK H&H ELAVATED.WILL MONITOR CLOSELY.PRADAXA ON HOLD FOR TONIGHT.CONTINUES TO HAVE GAY WINE COLORED URINE.
[2017-11-06 17:57] LABS: ALBUMIN 2.4 g/dL (3.4-5.0); ALKALINE PHOSPHATASE 72 U/L (46-116); ALT (SGPT) 15 U/L (10-68); BILIRUBIN - TOTAL 0.46 mg/dL (0.2-1.3); CALC OSMOLALITY 283 mosm/kg (275-300); CALCIUM 9.2 mg/dL (8.5-10.1); CARBON DIOXIDE 33.3 mmol/L (21.0-32.0); CHLORIDE - SERUM 107 mmol/L (98-107); CREATININE - SERUM 0.7 mg/dL (0.6-1.3); GLUCOSE 104 mg/dL (74-106); POTASSIUM - SERUM 4.1 mmol/L (3.5-5.1); PROTEIN - SERUM 4.9 g/dL (6.4-8.2); SODIUM 141 mmol/L (136-145); UREA NITROGEN 22 mg/dL (7-18); eGFR NON AFRICAN AMERICAN 85 mL/min (90-120)
--- NOTE | 2017-11-06 19:15 | NUR ---
PT. IN BED WITH HOB UP FOR COMFORT AND IS WATCHING TV. ASSESSMENT COMPLETED. NO VOICED NEEDS AT THIS TIME. O2 VIA N/C AT 2L/MIN WITHOUT ANY S/S DISTRESS OBSERVED OR REPORTED. CALL LIGHT WITHIN REACH.
[2017-11-06 19:45] VITALS: BP 124/57
--- NOTE | 2017-11-06 23:10 | NUR ---
PT. IN BED WITH HOB UP FOR COMFORT AND ALSO DUE TO TODAY'S EPISODE WITH NOSE BLEED HOB TO REMAIN UP AT LEAST 30 DEGREES. BI-PAP IN PLACE AND I HAVE HAD TO SEEK OUT WHY ALARM HAS BEEN GOING OFF AND HAVE FOUND PT. WITH MASK IN HER HAND OR TUBING PULLED OFF MASK AND HAVE HAD TO REPLACE IT. PT. DENIED BOTH TIMES THAT SHE DIDN'T REMOVE MASK OR PULL TUBING OFF OF MASK ADAPTOR. EYES ARE NOW CLOSED AND RESP. EVEN. CALL LIGHT WITHIN REACH.
--- NOTE | 2017-11-07 02:48 | NUR ---
HEARD BI-PAP ALARM GOING OFF AND UPON ENTERING ROOM BI-PAP MASK WAS LAYING ON BED AND PT. HAD HER O2 ON VIA N/C AND IS REFUSING TO REPLACE THE BI-PAP MASK IT HURTS HER TOO BAD. PT. IS AWARE OF THE NEED FOR THE BI-PAP BUT CAN NOT TOLERATE THE MASK IT CONTINUES TO HURT THE BRIDGE OF HER NOSE.
--- NOTE | 2017-11-07 03:00 | NUR ---
PT. IN BED WITH HOB UP AT LEAST 30 DEGREES WITH O2 ON AT 2L/MIN VIA N/C WITHOUT ANY S/S DISTRESS. CALL LIGHT WITHIN REACH.
--- NOTE | 2017-11-07 08:00 | NUR ---
PATIENT RESTING IN BED. ALERT WITH CONFUSION ON TIME AND SITUATION. BED ALARM ON. CALL LIGHT WITHIN REACH. PATIENT USING CALL LIGHT FOR NEEDS
[2017-11-07 08:36] VITALS: BP 121/57
--- NOTE | 2017-11-07 11:03 | NUR ---
PATIENT INCONT. OF URINE. LARGE AMOUNT OF TINGED BLOOD URINE IN BRIEF.
--- NOTE | 2017-11-07 12:20 | NUR ---
WAS EATING LUNCH AND HAD AN EPISODE OF COUGHING UP A BRIGHT RED MUCOUS FILLED PLUG INTO TISSUE.STATED SHE WAS EATING HER PIE.HAS NOT HAD ANY OTHER EPISODES.URINE IS STILL WINE COLORED RED.WILL CONTINUE TO MONITOR.
--- NOTE | 2017-11-07 14:46 | NUR ---
PATIENTS SON CALLED FOR UPDATE ON THIS PATIENT. PASSWORD GIVEN. SON IS PATIENTS DPA FOR HEALTH CARE. PATIENT TALKED TO SON AFTER TALKING TO THIS NURSE
--- NOTE | 2017-11-07 15:33 | NUR ---
PRN TYLENOL GIVEN FOR BACK PAIN PER PATIENT REQUEST
--- NOTE | 2017-11-07 17:35 | NUR ---
PRN TYLENOL GIVEN FOR BACK PAIN PER PATIENT REQUEST
--- NOTE | 2017-11-07 19:15 | NUR ---
PT. IN BED WITH HOB UP FOR COMFORT AND IS WATCHING TV. CALL LIGHT WITHIN REACH
--- NOTE | 2017-11-07 20:10 | NUR ---
REST IN BED, CALL LIGHT IN REACH.
[2017-11-07 21:48] VITALS: BP 130/64
--- NOTE | 2017-11-07 22:10 | NUR ---
RESP THERAPY STAFF PUT ON BIBPAP FOR PT.
--- NOTE | 2017-11-07 23:58 | NUR ---
REST IN BED, EYE CLOSE, CALL LIGHT IN REACH.
--- NOTE | 2017-11-08 02:02 | NUR ---
PT REMOVE BIBPAP, AND REFUSED TO PUT BACK ON.
--- NOTE | 2017-11-08 04:14 | NUR ---
REST QUIETLY IN BED, BED LOW, CALL LIGHT IN REACH.
[2017-11-08 06:54] LABS: BASOPHILS 0.1 % (0-2); EOSINOPHILS 0.1 % (0-7); HEMATOCRIT 42.9 % (36.0-48.0); HEMOGLOBIN 13.4 g/dL (12-16); IMMATURE GRANULOCYTES 0.7 % (0-5); LYMPHOCYTES 6.3 % (15-50); MCHC 31.2 g/dL (31.0-37.0); MCV 86.5 fL (80.0-100.0); MEAN PLATELET VOLUME 9.4 fL (7.4-10.4); MONOCYTES 6.7 % (2-11); NEUTROPHILS 86.1 % (40-80); PLATELET COUNT 253 10x3/uL (130-400); RBC 4.96 10x6/uL (4.00-5.40); RDW 14.7 % (11.5-14.5); WBC 16.5 10x3/uL (4.8-10.8)
[2017-11-08 07:12] LABS: CALC OSMOLALITY 288 mosm/kg (275-300); CALCIUM 9.6 mg/dL (8.5-10.1); CARBON DIOXIDE 29.8 mmol/L (21.0-32.0); CHLORIDE - SERUM 109 mmol/L (98-107); CREATININE - SERUM 0.7 mg/dL (0.6-1.3); GLUCOSE 114 mg/dL (74-106); SODIUM 143 mmol/L (136-145); UREA NITROGEN 22 mg/dL (7-18); eGFR NON AFRICAN AMERICAN 85 mL/min (90-120)
[2017-11-08 08:51] VITALS: BP 118/52
--- NOTE | 2017-11-08 09:15 | NUR ---
PT AM MEDS ADMINISTERED. PT DENIES NEEDS. WCTM.
--- NOTE | 2017-11-08 11:02 | NUR ---
PT ASSISTED TO BR. PT URINE COPIOUS AMOUNTS OF DARK AND LIGHT RED BLOOD. PT BACK IN BED RESTING AT THIS TIME, DENIES NEEDS.
--- NOTE | 2017-11-08 16:00 | NUR ---
PT INSTRUCTED TO CALL NURSE WHEN SHE FEELS THE URGE TO URINATE AND WAS MADE AWARE THAT A CLEAN CATCH URINE SAMPLE WAS ORDERED AND THAT I WOULD ASSIST.
--- NOTE | 2017-11-08 18:55 | NUR ---
PATIENT IN BED, AWAKE. ASSISTED HER HIGHER UP IN BED. REMOVED DINNER TRAY PATIENT SATATED HSE WAS DONE.
[2017-11-08 20:50] VITALS: BP 121/58
--- NOTE | 2017-11-08 20:50 | NUR ---
REPOSITIONED PATIENT UP IN BED. ASSESSMENT AND HS MEDS COMPLETE. SLEEPY. DENIES CURRENT NEEDS.
--- NOTE | 2017-11-08 22:15 | NUR ---
PATIENT WAS ASSISTED TO BATHE (REFUSED SHOWER). GOWN AND BED LINENS WERE CHANGED. DENIES CURRENT NEEDS. O2 CONTINUES PER N/C @ 2L FLOW.
--- NOTE | 2017-11-09 00:10 | NUR ---
RESTING QUIETLY IN BED, WITH BIPAP MASK ON. WAS PLACED ON BIPAP EARLIER BY WILL PÉREZ R/T.
--- NOTE | 2017-11-09 01:55 | NUR ---
RESTING IN BED, EYES CLOSED. BIPAP CONTINUES BEFORE DESCRIBED. APPEARS TO BE TOLERATING IT WELL TONIGHT.
--- NOTE | 2017-11-09 03:45 | NUR ---
BIPAP ALARMING. PATIENT HAD REMOVED MASK AND HAD DONNED HER NASAL CANNULA WITH O2 FLOW @ 2L. SAYS SHE IS DONE WIH THE BIPAP TONIGHT.
--- NOTE | 2017-11-09 05:40 | NUR ---
GAVE PATIENT SCHEDULED PO MEDS. PREPPED PATIENT AND OBTAINED FEMALE CATH URINE SAMPLE FOR UA, C&S PER DR. OSBORNE ORDER. CLEANSED PATIENT FROM MODERATE URINE INCONTINENCE (LIGHT HEMATURIA) AND APPLIED FRESH PULL-UP BRIEF. AND SCRUB TOP.
[2017-11-09 07:03] LABS: APPEARANCE TURBID (CLEAR); BACTERIA FEW /hpf (NONE SEEN); BILIRUBIN NEGATIVE (NEGATIVE); COLOR RED (YELLOW); EPITHELIAL CELLS RARE /hpf (0-5); GLUCOSE NEGATIVE (NEGATIVE); KETONE NEGATIVE (NEGATIVE); NITRITE NEGATIVE (NEGATIVE); PROTEIN 1+ mg/dL (NEGATIVE); RED CELLS - URINE >50 /hpf (0-5); SPECIFIC GRAVITY 1.015 (1.005-1.020); UROBILINOGEN NORMAL (NORMAL)
--- NOTE | 2017-11-09 07:25 | NUR ---
SITTING UP IN BED RECEIVING UPDRAFT TREATMENT. ALERT AND ORIENTED X4. DENIES ANY NEEDS OR PAIN. NO S/SX OF RESPIRATORY DISTRESS NOTED. CALL LIGHT AND PERSONAL ITEMS WITHIN REACH, BED LOW AND ALARM ON. WILL CONTINUE TO MONITOR
[2017-11-09 07:59] VITALS: BP 112/51
--- NOTE | 2017-11-09 09:24 | NUR ---
Nutrition Follow Up: Pt reported that her appetite is fair. She is eating 56% meal avg on a regular [facility] soft diet. +BM 11/06/17. Meds and labs reviewed. Rec continue regular diet with ACTUARIAL CONSULTANT recs for consistencies. RD following.
--- NOTE | 2017-11-09 12:27 | NUR ---
SITTING UP IN BED EATING LUNCH. DENIES ANY NEEDS OR PAIN. NO S/SX OF ACUTE DISTRESS NOTED. CALL LIGHT AND PERSONAL ITEMS WITHIN REACH, BED LOW AND ALARM ON. WILL CONTINUE TO MONITOR
--- NOTE | 2017-11-09 15:33 | NUR ---
LYING IN BED EYES CLOSED RESTING. APPROPRIATE RISE AND FALL OF CHEST. NO S/SX OF RESPIRATORY DISTRESS NOTED. CALL LIGHT AND PERSONAL ITEMS WITHIN REACH, BED LOW AND ALARM ON. WILL CONTINUE TO MONITOR
--- NOTE | 2017-11-09 18:02 | NUR ---
SITTING UP IN BED WATCHING TV. DENIES ANY NEEDS OR PAIN. NO S/SX OF ACUTE DISTRESS NOTED. CALL LIGHT AND WATER WITHIN REACH, BED LOW AND ALARM ON. WILL CONTINUE TO MONITOR
--- NOTE | 2017-11-09 19:30 | NUR ---
AWOKE PATIENT AND SET HER TO COMPLETE HER MENU. TOLD I HER I WILL RE-WARM HER DINNER SHE FELL ASLEEP AFTER IT WAS PRESENTED TO HER AROUND 1700, AND SHE NEEDS TO EAT.
[2017-11-09 21:25] VITALS: BP 134/56
--- NOTE | 2017-11-09 21:25 | NUR ---
ASSESSMENT AND HS MEDS COMPLETE. ATE ONLY ABOUT 25% OF DINNER. REMOVED TRAY. REPOSITIONED PATIENT UP IN BED. DENIES NEEDS.
--- NOTE | 2017-11-09 22:10 | NUR ---
RESTING QUIETLY IN BED, EYES CLOSED.
--- NOTE | 2017-11-10 00:10 | NUR ---
RESTING QUEITLY IN BED, EYES CLOSED.
--- NOTE | 2017-11-10 01:50 | NUR ---
REMAISN IN BED, EYES CLOSED. CONTINUES WITH BIPAP MASK IN PLACE AND BIPAP OPERATING.
--- NOTE | 2017-11-10 04:30 | NUR ---
IN BED, EYES CLOSED. O2 PER N/C @ 2L FLOW. RESPIRING QUIETLY.
--- NOTE | 2017-11-10 06:10 | NUR ---
GAVE PATIENT PO MEDS AND ASSISTED HER UP TO BR TO URINATE. URINE IN COMMODE IS VERY LIGHT PEACH COLOR. INCONTINENT URINE IN BED PAD IS DARK YELLOW. NO CLOTS OR OBVIOUS BLOOD. CHANGED ALL PATIENTS BED DUE TO INCONTINENCE. ALSO REMOVED HER DONTE GALEAS FOR THE SAME REASON. RETURNED PATIENT TO BED AND ADDED AN EXTRA BLANKET TO REPLACE DONTE KRAMERE SHE HAD SOILED.
[2017-11-10 06:48] LABS: BASOPHILS 0 % (0-2); EOSINOPHILS 0 % (0-7); HEMATOCRIT 37.3 % (36.0-48.0); HEMOGLOBIN 11.7 g/dL (12-16); IMMATURE GRANULOCYTES 0.5 % (0-5); LYMPHOCYTES 5.7 % (15-50); MCH 26.8 pg (26.0-34.0); MCHC 31.4 g/dL (31.0-37.0); MCV 85.4 fL (80.0-100.0); MEAN PLATELET VOLUME 9.3 fL (7.4-10.4); MONOCYTES 4.7 % (2-11); NEUTROPHILS 89.1 % (40-80); RBC 4.37 10x6/uL (4.00-5.40); RDW 14.8 % (11.5-14.5); WBC 12.2 10x3/uL (4.8-10.8)
[2017-11-10 06:54] LABS: CALC OSMOLALITY 279 mosm/kg (275-300); CALCIUM 9.1 mg/dL (8.5-10.1); CARBON DIOXIDE 26.3 mmol/L (21.0-32.0); CHLORIDE - SERUM 107 mmol/L (98-107); CREATININE - SERUM 0.5 mg/dL (0.6-1.3); GLUCOSE 123 mg/dL (74-106); PLATELET COUNT 170 10x3/uL (130-400); POTASSIUM - SERUM 4.1 mmol/L (3.5-5.1); SODIUM 138 mmol/L (136-145); UREA NITROGEN 20 mg/dL (7-18); eGFR NON AFRICAN AMERICAN > 90 mL/min (90-120)
[2017-11-10 07:56] VITALS: BP 102/49
--- NOTE | 2017-11-10 10:15 | NUR ---
IN THERAPY GYM WITH OCCUPATIONAL THERAPY. NO S/SX OF RESPIRATORY DISTRESS NOTED. WILL CONTINUE TO MONITOR
--- NOTE | 2017-11-10 13:33 | NUR ---
PT RESTING, EYES CLOSED. RR ARE EVEN AND UNLABORED. WCTM.
--- NOTE | 2017-11-10 15:36 | NUR ---
CARE TEAM MEETING: PATIENT PROGRESSING IN THERAPY AND TENATIVE DISCHARGE DATE IS 11/12/17 AND SHE WILL RETURN TO HER HOME AT [facility]. WILL CONTINUE TO FOLLOW WITH PATIENT.
--- NOTE | 2017-11-10 17:37 | NUR ---
PT EATING DINNER, DENIES NEEDS. WCTM.
--- NOTE | 2017-11-10 19:30 | NUR ---
PT. SITTING UP IN W/C AND AWAITING HER SHOWER. O2 ON PER N/C WITHOUT ANY S/S DISTRESS. CALL LIGHT WITHIN REACH.
[2017-11-10 20:00] VITALS: BP 128/58
--- NOTE | 2017-11-10 21:30 | NUR ---
RESPIRATORY THERAPIST, WILL, RT INFORMED ME THAT PT. REFUSED TO HAVE HER BI-PAP TURNED ON TONIGHT. PT. TOLD WILL THAT IF SHE CHANGES HER MIND SHE WILL LET THE NURSING STAFF KNOW.
--- NOTE | 2017-11-10 23:10 | NUR ---
PT. IN BED WITH HOB UP FOR COMFORT. O2 ON AT 2L/MIN VIA N/C WITHOUT ANY S/S DISTRESS. EYES CLOSED AND RESP. EVEN. CALL LIGHT WITHIN REACH.
--- NOTE | 2017-11-11 03:05 | NUR ---
PT. IN BED WITH HOB UP FOR COMFORT WITH O2 VIA N/C @ 2L/MIN. NO S/S DISTRESS OBSERVED. CALL LIGHT WITHIN REACH.
--- NOTE | 2017-11-11 08:00 | NUR ---
ASSISTED TO BATHROOM AND BACK TO BED WITH MIN ASSIST. BED ALARM ON. SIDE RAILS UP X2. CALL LIGHT WITHIN REACH
[2017-11-11 08:10] VITALS: BP 100/55
--- NOTE | 2017-11-11 13:29 | NUR ---
RECIEVED UP IN BED WITH EYES CLOSED. PT REPORTED RECIEVEING THERAPY THIS MORNING AND VERY TIRED. N.O FOR DIFLUCAN AND PT AWARE. DENIES ANY PAIN AO DISCOMFORT. CALL LIGHT IN REACH.
--- NOTE | 2017-11-11 19:15 | NUR ---
PT. SITTING UP IN W/C AND WAITING FOR HER SHOWER TONIGHT. ASSESSMENT COMPLETED. NO VOICED NEEDS AT THIS TIME. PT. WEARING HER O2 AT 3L/MIN WITHOUT ANY S/S DISTRESS OBSERVED. CALL LIGHT WITHIN REACH.
[2017-11-11 19:55] VITALS: BP 119/65
--- NOTE | 2017-11-11 23:08 | NUR ---
PT. IN BED WITH HOB UP FOR COMFORT WITH EYES CLOSED AND RESP. EVEN. O2 ON AT 3L/MIN VIA N/C WITHOUT ANY S/S DISTRESS OBSERVED. PULSE OX READINGS BEING DONE REQUESTED BY DAY SHIFT PROFESSOR OF ENVIRONMENTAL STUDIES IN PREP. FOR PT'S D/C HOME. CALL LIGHT WITHIN REACH.
--- NOTE | 2017-11-11 23:52 | NUR ---
NO BIPAP AT THIS TIME NURSING DOING OVER NIGHT SPO2 PER CASE MANAGEMENT REQUEST
--- NOTE | 2017-11-12 01:05 | NUR ---
COMPLETED 2 HOURS OF PULSE OX READINGS AND PT'S PULSE OX WAS BETWEEN 99-100% THE ENTIRE TESTING TIME.
--- NOTE | 2017-11-12 03:05 | NUR ---
PT. IN BED WITH HOB UP FOR COMFORT AND IS NOT WEARING HER BI-PAP SINCE SHE WENT TO THE BATHROOM SHE DIDN'T WANT TO WEAR IT ANY MORE. EYES CLOSED AND RESP. EVEN. O2 ON AT 3L/MIN VIA N/C WITHOUT ANY S/S DISTRESS. CALL LIGHT WITHIN REACH.
[2017-11-12 07:06] LABS: BASOPHILS 0.1 % (0-2); EOSINOPHILS 0.4 % (0-7); HEMATOCRIT 36.3 % (36.0-48.0); HEMOGLOBIN 11.4 g/dL (12-16); LYMPHOCYTES 10.9 % (15-50); MCH 27.1 pg (26.0-34.0); MCHC 31.4 g/dL (31.0-37.0); MCV 86.2 fL (80.0-100.0); MEAN PLATELET VOLUME 9.2 fL (7.4-10.4); MONOCYTES 9.1 % (2-11); NEUTROPHILS 78.5 % (40-80); RBC 4.21 10x6/uL (4.00-5.40); RDW 15.1 % (11.5-14.5); WBC 9.7 10x3/uL (4.8-10.8)
[2017-11-12 07:07] LABS: PLATELET COUNT 220 10x3/uL (130-400)
[2017-11-12 07:27] LABS: CALC OSMOLALITY 284 mosm/kg (275-300); CARBON DIOXIDE 31.4 mmol/L (21.0-32.0); CHLORIDE - SERUM 108 mmol/L (98-107); CREATININE - SERUM 0.7 mg/dL (0.6-1.3); GLUCOSE 100 mg/dL (74-106); POTASSIUM - SERUM 3.6 mmol/L (3.5-5.1); SODIUM 143 mmol/L (136-145); UREA NITROGEN 12 mg/dL (7-18); eGFR NON AFRICAN AMERICAN 85 mL/min (90-120)
[2017-11-12] MEDS ORDERED: ELIQUIS2.5 MG PO (07:49)
[2017-11-12] MEDS ORDERED: CAPOTEN12.5 MG PO (07:49)
--- NOTE | 2017-11-12 08:00 | NUR ---
PATIENT ALERT/ORIENT X4. PLAN TO DISCHARGE TO HOME, JEET KAY. PATINT AWARE OF DISCHARGE PLANS.
[2017-11-12 08:36] VITALS: BP 109/54
--- NOTE | 2017-11-12 09:41 | NUR ---
DR. Matty MARTINEZ INTO SEE PATIENT DISCHARGE ORDERS WRITTEN
--- NOTE | 2017-11-12 10:00 | NUR ---
PATIENT DISCHARGING HOME BACK TO [facility] VIA FACILITY [facility] AT HOME WILL PROVIDE THERAPY AT HOME. NO NEW DME NEEDED AT THIS TIME.DR. HEALY 11/23/17 @ 10:00, DR. DAWKINS 12/15/17 @ 11:30. PATIENT CHOICE FORM FOR HOME HEALTH AND [facility] FORM SIGNED, EXPLAINED AND FILED IN CHART.PATIENT TESTED LAST PM FOR BIPAP AT HOME AND AT THIS TIME SHE DOES NOT QUALIFY. DR. PASCAL OFFICE AND DR. DAWKINS OFFICE NOTIFIED. DISCHARGE RECORDS HAVE BEEN FAXED TO [place]. KAY, DR. HEALY OFFICE AND DR. DAWKINS WITH CONFORMATION RECIEVED
--- NOTE | 2017-11-12 11:00 | NUR ---
TALKED WITH NURSE WEED COOKING OPERATOR. DISCHARGE PUT ON HOLD UNTIL STUDY CAN BE DONE FOR A BIPAP
--- NOTE | 2017-11-12 11:07 | NUR ---
DISCHARGE ON HOLD UNTIL FURTHER NOTICE PENDING TESTING FOR BIPAP. SON NOTIFIED.
--- NOTE | 2017-11-12 11:58 | NUR ---
OXYGEN TURNED FROM THREE LITERS N/C TO ONE LITER N/C. PULSE OX REMAINS AT 94% AT ONE LITER
--- NOTE | 2017-11-12 14:28 | NUR ---
PATIENT IN REHAB ROOM. PULSE OX 99% PER 1L N/C
--- NOTE | 2017-11-12 16:00 | NUR ---
RESTING QUIETLY.DENIES NEEDS.
--- NOTE | 2017-11-12 17:26 | NUR ---
PATIENT NOTIFED THAT SHE WILL BE GETTING A ROOM MATE
[2017-11-12 19:15] VITALS: BP 117/68
--- NOTE | 2017-11-12 19:15 | NUR ---
RECIEVED RESTING IN BED WITH EYES CLOSED AND HOB ELEVATED. EASILY AROUSES WITH VERBAL STIMULI. O2@ 1 LITER PER N/C. RESP EVEN AND UNLABORED. CALL LIGHT AND OVERBED TABLE IN REACH.
--- NOTE | 2017-11-12 23:58 | NUR ---
RESTING IN BED WITH EYES CLOSED. NO S/S OF DISTRESS OBSERVED. O2@1 LITER PER N/C. RESP. EVEN AND UNLABORED. HOB ELEVATED. CALL LIGHT AND OVERBED TABLE IN REACH.
--- NOTE | 2017-11-13 02:06 | NUR ---
ASSISTED TO TOILET WITH MIN ASSIST AND BACK TO BED. DENIES ANY PAIN. CALL LIGHT IN REACH.
--- NOTE | 2017-11-13 04:52 | NUR ---
RESTING IN BED WITH EYES CLOSED. NO S/S OF DISTRESS OBSERVED.
--- NOTE | 2017-11-13 07:30 | NUR ---
SITTING UP IN BED RESTING. ALERT AND ORIENTED X4. DENIES ANY NEEDS OR PAIN. NO S/SX OF RESPIRATORY DISTRESS NOTED. CALL LIGHT AND PERSONAL ITEMS WITHIN REACH, BED LOW AND ALARM ON. WILL CONTINUE TO MONITOR
[2017-11-13 08:33] VITALS: BP 92/46
--- NOTE | 2017-11-13 09:31 | NUR ---
ADMINISTERED MORNING MEDS WHOLE WITHOUT DIFFICULTY. DENIES ANY NEEDS OR PAIN. SITTING UP IN W/C BRAKES LOCKED AND BOX ALARM ON. WILL CONTINUE TO MONITOR
--- NOTE | 2017-11-13 13:12 | NUR ---
SITTING UP IN W/C WATCHING TV. DENIES ANY NEEDS OR PAIN. NO S/SX OF ACUTE DISTRESS NOTED. CALL LIGHT WITHIN REACH, W/C BRAKES LOCKED AND ALARM ON. WILL CONTINUE TO MONITOR.
--- NOTE | 2017-11-13 17:38 | NUR ---
SITTING UP IN BED LOOKING AT TV. DENIES ANY NEEDS OR PAIN. NO S/SX OF ACUTE DISTRESS NOTED. CALL LIGHT AND PERSONAL ITEMS WITHIN REACH, BED LOW AND ALARM ON. WILL CONTINUE TO MONITOR
[2017-11-13 19:22] VITALS: BP 103/53
--- NOTE | 2017-11-13 19:37 | NUR ---
RESTING IN BED WITH EYES CLOSED. O2@2 LITERS PER N/C. RESP. EVEN AND UNLABORED. HOB ELEVATED TO 30 DEGREES. EASILY AROUSES WITH VERBAL STIMULI. CALL LIGHT AND OVERBED TABLE IN REQACH.
--- NOTE | 2017-11-13 23:37 | NUR ---
RESTING IN BED WITH EYES CLOSED. NO S/S OF DISTRESS OBSERVED. CALL LIGHT IN REACH. O2@2 LITER PER N/C.
--- NOTE | 2017-11-14 04:41 | NUR ---
WHEN ASSISTING PT FROM B/R HER NOSE STARTED BLEEDING. PT STATES " I DON'T KNOW WHY". SMALL AMT OF BLOOD ON TISSUE. EDUCATED TO NOT HOLD HER HEAD BACK D/T POSSIBLE CHOKING. AND TO PINCH NOSE AT THE BRIDGE. NOSE BLEED STOPPED. H2O PLACE ON OXYGEN TO HELP MOISTEN NASAL PASSAGES.
--- NOTE | 2017-11-14 07:21 | NUR ---
SITTING UP IN W/C WATCHING MORNING NEWS. DENIES ANY PAIN OR NEEDS. NO S/SX OF RESPIRATORY DISTRESS. CALL LIGHT AND PERSONAL ITEMS WITHIN REACH, BED LOW AND ALARM ON. WILL CONTINUE TO MONITOR
[2017-11-14 08:40] VITALS: BP 98/32
--- NOTE | 2017-11-14 11:20 | NUR ---
SITTING UP IN W/C WATCHING TV. DENIES ANY NEEDS OR PAIN. NO S/SX OF RESPIRATORY DISTRESS NOTED. CALL LIGHT AND WATER WITHIN REACH, W/C BRAKES LOCKED AND BOX ALARM ON. WILL CONTINUE TO MONITOR
--- NOTE | 2017-11-14 14:00 | NUR ---
PT RESTING IN ROOM, DENIES NEEDS. WCTM.
--- NOTE | 2017-11-14 16:00 | NUR ---
ASSISTED WITH AMBULATING TO BATHROOM AND BACK TO BED WITH SBA AND MIN ASSIST WITH W/C. CALL LIGHT AND PERSONAL ITEMS WITHIN REACH, BED LOW AND ALARM ON. WILL CONTINUE TO MONITOR
[2017-11-14 19:11] VITALS: BP 120/48
--- NOTE | 2017-11-14 19:11 | NUR ---
RESTING IN BED WITH EYES OPEN AND TV ON. ALERT AND ORIENTED. PLEASANT AND COOPERATIVE. O2@2 LITERS PER N/C . RESP EVEN AND UNLABORED. PACEMAKER TO LEFT CHEST. DENIES ANY PAIN. ASSISTED TO TOILET. REQUIRES STAND BY ASSIST.
--- NOTE | 2017-11-15 02:58 | NUR ---
ASSISSITED TO TOILET AND BACK TO BED. DENIES ANT PAIN. BRIEF CHANGED. CALL LIGHT AND OVERBED TABLE IN PLACE O222 LITERS PER N/C IN PLACE.
[2017-11-15 09:51] VITALS: BP 106/54
--- NOTE | 2017-11-15 10:33 | NUR ---
RESTING QUIETLY IN BED. MOD ASST TO BATHROOM. WEARING OXYGEN ORDERED.
--- NOTE | 2017-11-15 16:09 | NUR ---
RESTING QUIETLY IN BED, EYES CLOSED. CALL LIGHT IN REACH
--- NOTE | 2017-11-15 19:15 | NUR ---
PT. IN BED WITH HOB UP FOR COMFORT WEARING HER N/C O2 AT 2L/MIN WITHOUT ANY S/S DISTRESS. ASSESSMENT COMPLETED. ASSISTED PT. TO BR TO URINATE. NO FURTHER HEMATURIA FOR A COUPLE OF DAYS PER PT. R.T. TO COME AND PLACE BI-PAP AT HS. CALL LIGHT WITHIN REACH.
[2017-11-15 21:42] VITALS: BP 118/53
--- NOTE | 2017-11-15 23:10 | NUR ---
PT. IN BED WITH HOB UP FOR COMFORT WITH EYES CLOSED AND RESP. EVEN. BI-PAP EQUIPMENT ON AND WITHOUT ANY ALARMS SO FAR. CALL LIGHT WITHIN REACH.
--- NOTE | 2017-11-16 03:08 | NUR ---
PT. IN BED WITH HOB UP FOR COMFORT AND WEARING HER BI-PAP EQUIPMENT WITHOUT ANY ALARMS. EYES CLOSED AND RESP. EVEN. CALL LIGHT WITHIN REACH.
--- NOTE | 2017-11-16 07:30 | NUR ---
SITTING UP IN W/C EATING BREAKFAST. DENIES ANY PAIN OR NEEDS. NO S/SX OF RESPIRATORY DISTRESS NOTED. ALERT AND ORIENTED X4. CALL LIGHT AND PERSONAL ITEMS WITHIN REACH, W/C BRAKES LOCKED AND ALARM ON. WILL CONTINUE TO MONITOR
--- NOTE | 2017-11-16 07:45 | NUR ---
RESTING QUIETLY IN BED. NO DISTRESS. NO C/O PAIN. RESP EVEN AND UNLABORED.
--- NOTE | 2017-11-16 09:51 | NUR ---
LYING IN BED WATCHING TV. DENIES ANY NEEDS OR PAIN. NO S/SX OF ACUTE DISTRESS. CALL LIGHT AND PERSONAL ITEMS WITHIN REACH, BED LOW AND ALARM ON. WILL CONTINUE TO MONITOR
[2017-11-16 10:30] VITALS: BP 115/45
--- NOTE | 2017-11-16 11:58 | NUR ---
Nutrition Follow Up: Pt was asleep at the time of RD visit. Interview deferred. Pt is eating 61% meal avg on a regular [facility] soft diet. +BM 11/14/17. Meds and labs reviewed. Rec continue current diet. RD following.
--- NOTE | 2017-11-16 12:46 | NUR ---
SITTING UP IN W/C LOOKING AT TV. DENIES ANY NEEDS OR PAIN. CALL LIGHT WITHIN REACH, W/C BRAKES LOCKED BOX ALARM ON. WILL CONTINUE TO MONITOR
--- NOTE | 2017-11-16 14:57 | NUR ---
LYING IN BED EYES CLOSED RESTING. APPROPRIATE RISE AND FALL OF CHEST. NO S/SX OF RESPIRATORY DISTRESS NOTED. CALL LIGHT WITHIN REACH, BED LOW AND ALARM ON. WILL CONTINUE TO MONITOR
--- NOTE | 2017-11-16 17:06 | NUR ---
LYING IN BED LOOKING AT TV. DENIES ANY NEEDS OR PAIN. CALL LIGHT AND PERSONAL ITEMS WITHIN REACH, BED LOW AND ALARM ON. WILL CONTINUE TO MONITOR
--- NOTE | 2017-11-16 19:15 | NUR ---
PT. IN BED WITH HOB UP FOR COMFORT WITH EYES CLOSED AND RESP. EVEN. PT. AWAKENS EASILY FOR ASSESSMENT. O2 ON AT 1L/MIN VIA N/C WITHOUT ANY S/S DISTRESS. PT. REPORTS SHE IS GOING HOME TOMORROW. CALL LIGHT WITHIN REACH.
[2017-11-16 19:50] VITALS: BP 124/55
--- NOTE | 2017-11-17 01:44 | NUR ---
PT. IN BED WITH HOB UP FOR COMFORT AND WEARING HER BI-PAP MASK. HAVE ONLY HAD TO GO AND TIGHTEN UP MASK ONCE SO FAR THIS SHIFT TO STOP THE ALARMS. EYES CLOSED AND RESP. EVEN WITH CALL LIGHT WITHIN REACH.
--- NOTE | 2017-11-17 03:08 | NUR ---
PT. IN BED WITH HOB UP WITH BI-PAP MASK ON. EYES CLOSED AND RESP. EVEN. CALL LIGHT WITHIN REACH.
--- NOTE | 2017-11-17 04:16 | NUR ---
ASSISTED PT. TO BR TO URINATE AND THEN SHE WANTED TO SIT UP AND EAT HER PB&J SANDWICH AND SOFT DRINK. TURNED OFF BI-PAP PT. WAS SITTING UP IN HER W/C. CALL LIGHT WITHIN REACH.
--- NOTE | 2017-11-17 07:08 | NUR ---
SITTING UP IN W/C READING NEWSPAPER. DENIES ANY NEEDS OR PAIN. NO S/SX OF ACUTE DISTRESS NOTED. CALL LIGHT AND PERSONAL ITEMS WITHIN REACH, W/C BRAKES LOCKED AND ALARM ON. WILL CONTINUE TO MONITOR
--- NOTE | 2017-11-17 08:01 | NUR ---
PT UP EATING BREAKFAST, DENIES NEEDS. WCTM.
[2017-11-17 09:01] VITALS: BP 115/63
--- NOTE | 2017-11-17 10:02 | NUR ---
LYING IN BED EYES CLOSED RESTING. DENIES ANY NEEDS OR PAIN. NO S/SX OF RESPIRATORY DISTRESS NOTED. CALL LIGHT AND WATER WITHIN REACH, BED LOW AND ALARM ON. WILL CONTINUE TO MONITOR
--- NOTE | 2017-11-17 16:36 | NUR ---
PATIENT WILL DISCHARGE HOME IN AM AND A TRILOGY WILL BE DELIVERED TO HER HOME. WILL CONTINUE TO FOLLOW WITH PATIENT. SON NOTIFIED BY NURSE.
--- NOTE | 2017-11-17 18:33 | NUR ---
PT RESTING IN ROOM, DENIES NEEDS. CLEANED OF INCONTINENC. WCTM.
--- NOTE | 2017-11-17 19:00 | NUR ---
IN BED, RESTING WITH EYES CLOSED. O2 @ 1L PER N/C.
--- NOTE | 2017-11-17 20:05 | NUR ---
CONTINUES IN BED, EYES CLOSED. APPEARS COMFORTABLE.
[2017-11-17 22:05] VITALS: BP 110/46
--- NOTE | 2017-11-17 22:05 | NUR ---
ASSESSMENT AND HS MEDS COMPLETE. HELD HS CAPOTEN DOSE DUE TO LOW BP OF 110/46. ASSISTED PATIENT UP TO BR COMMODE TO URINATE, AND THEN BACK TO BED.
--- NOTE | 2017-11-18 00:10 | NUR ---
RESTING IN BED WITH BIPAP MASK IN PLACE. NO DISCOMFORT EVIDENT.
--- NOTE | 2017-11-18 02:20 | NUR ---
ASSISTED PATIENT UP TO BR TO URINATE AND BACK TO BED. REMAINS AWAKE SHE HAS FOR THE PAST HOUR, WATCHING TV. HAD EARLIER PULLED OFF HER BIPAP MASK LEAVING IT HANGING AROUND HER NECK, BUT HAD NOT REEMPLACED HER NASAL CANNULA @ 1L FLOW. REMINDED HER THAT HER CURRENT ORDERS FROM PULMONOLOGY ARE FOR BIPAP WHEN SLEEPING, OTHERWISE NASAL CANNULA AT 1L. HAS NOT YET FIGURED OUT HOW TO PROPERLY REMOVE HER BIPAP MASK WITHOUT PULLING THE STRAPS APART. I PERSONALLY HAVE INSTRUCTED HER HOW TO DO SO HAVE THE REPISRATORY THERAPISTS, TO NO AVAIL.
--- NOTE | 2017-11-18 02:40 | NUR ---
ASSISTED PATIENT ONTO BEDPAN WHERE SHE URINATED 300ML CONCENTRATED URINE WITH A SMALL AMOUNT OF PRIOR URINE INCONTINENCE IN HER BLUE AIR PAD. CLEANSED HER AND CHANGED HER BLUE PAD AND APPLIED BUTT PASTE TO MILDLY PINK PERIANAL AREA. ASSISTED HER TO TURN TO HER RIGHT SIDE. CONTINUES TO DENY PAIN, THOUGH SHE WINCES WHEN ASSISTED TO REPOSITION HER LEFT LEG.
--- NOTE | 2017-11-18 04:10 | NUR ---
RESTING IN BED, EYES CLOSED. RESPIRING QUIETLY.
--- NOTE | 2017-11-18 06:20 | NUR ---
RESTING IN BED, EYES CLOSED. O2 PER N/C @ 1L FLOW.
--- NOTE | 2017-11-18 07:19 | NUR ---
RESTING QUIETLY IN BED. CALL LIGHT IN REACH. BED IN LOWEST POSITION.
--- NOTE | 2017-11-18 08:12 | NUR ---
PATIENT ASLEEP WHEN BREAKFAST TRAY BROUGHT INTO ROOM. CALL LIGHT WITHIN REACH. PLAN TO DISCHARGE TO HOME TODAY.
[2017-11-18 08:15] VITALS: BP 112/49
--- NOTE | 2017-11-18 08:30 | NUR ---
DR Matty MARTINEZ HERE. DISCHARGED ORDERS WRITTEN.
--- NOTE | 2017-11-18 09:30 | NUR ---
DISCHARGE ORDERS GONE OVER WITH PATIENT. DISCHARGE MEDICATIONS CALLED INTO [facility].
--- NOTE | 2017-11-18 09:49 | NUR ---
PATIENT DISCHARGING HOME TODAY WITH [facility] PATIENT WILL DELIVER A TRILOGY TO PATIENT AT HOME.
--- NOTE | 2017-11-18 12:30 | NUR ---
JEET SCHMIDT HERE TO SENIOR SOFTWARE QUALITY ENGINEER PATIENT.
--- NOTE | 2017-11-18 13:00 | NUR ---
THIS NURSE CALLED JEET KAY TO GIVE REPORT ON PATIENT. GOT ANSWEARING MACHINE AT NURSES STATION. LEFT MESSAGE
== END 2017-11-18 13:59 | disposition home health service (06) | DRG 70 ==
LOC: D.REHAB 16:54
PROVIDERS: Student in an Organized Health Care Education/Training Program; ADMIT Emergency Medicine
DX: G93.40 Encephalopathy, unspecified (principal); J96.92 Respiratory failure, unspecified with hypercapnia; J18.9 Pneumonia, unspecified organism; I48.92 Unspecified atrial flutter; J44.1 Chronic obstructive pulmonary disease with (acute) exacerbation; Z99.81 Dependence on supplemental oxygen; R13.12 Dysphagia, oropharyngeal phase; E03.9 Hypothyroidism, unspecified; I10 Essential (primary) hypertension; R53.1 Weakness; E78.5 Hyperlipidemia, unspecified; F41.8 Other specified anxiety disorders; Z66 Do not resuscitate

== ENCOUNTER 2018-01-01 16:16 | Emergency (ER) | payer MEDICARE, BC ==
[2017-11-05 14:52] VITALS: BMI 24.4
[~2018-01-01 16:16] MED LIST changes: +CAPOTEN12.5 MG PO; +ELIQUIS2.5 MG PO; +PROTONIX40 MG PO; +ZOFRAN4 MG PO
== END 2018-01-01 18:17 | disposition home or self-care (01) ==
LOC: D.ER 16:16
DX: S92.251A Displaced fracture of navicular [scaphoid] of right foot, initial encounter for closed fracture (principal); W01.0XXA Fall on same level from slipping, tripping and stumbling without subsequent striking against object, initial encounter; Y93.89 Activity, other specified; Y92.129 Unspecified place in nursing home as the place of occurrence of the external cause; S51.011A Laceration without foreign body of right elbow, initial encounter; S00.83XA Contusion of other part of head, initial encounter; J44.9 Chronic obstructive pulmonary disease, unspecified; I10 Essential (primary) hypertension; E03.9 Hypothyroidism, unspecified; Z95.0 Presence of cardiac pacemaker

== ENCOUNTER → 2018-04-19 12:28 | Outpatient (CLI) | payer MEDICARE, BC ==
[2017-11-05 14:52] VITALS: BMI 24.4
[2018-04-22 03:12] LABS: IMMUNOGLOBULIN E 4 IU/mL (0-100)
== END | disposition home or self-care (01) ==
LOC: D.RT 04-11 14:00 → D.RAD 04-11 15:00 → D.LAB 04-11 15:30 → D.RT 12:28
PROVIDERS: Internal Medicine Pulmonary Disease
DX: J44.9 Chronic obstructive pulmonary disease, unspecified (principal)